=== PATIENT | male | born 1985 | race Caucasian/White ===

== ENCOUNTER 2018-03-08 11:11 | Inpatient (IN) | payer OTHER, MEDICAID, SELFPAY ==
[2018-03-08] VITALS (11 sets, daily range): BP systolic 122–150; BP diastolic 72–111; PULSE 69–144; RESP 16–32; TEMP 38–39.2; O2SAT 94–98; BMI 30.2; BMI 31.2; BMI 31.3
--- NOTE | 2018-03-08 11:26 | RAD_ITS ---
STUDY: X-RAY CHEST REASON FOR EXAM: Male, 33 years old. Vomiting TECHNIQUE: Frontal and lateral views COMPARISON: None. FINDINGS: The lungs are clear and expanded. There is no demonstrated pleural abnormality. Normal size heart. Normal mediastinum and edy. Normal visualized pulmonary arteries. Normal visualized aortic arch and descending thoracic aorta. Vertebral rods are noted of the thoracic spine. Normal visualized ribs, clavicles, and shoulders. There is no demonstrated abnormality of the visualized soft tissue structures of the upper abdomen. RAD/Chest PA and Lateral IMPRESSION: Normal x-ray examination of the chest. Electronically Signed: Harsha De Leon DO at 13:06 EDT Tel [phone], Service support ,
--- NOTE | 2018-03-08 11:28 | ED.VISSUMM ---
- ER Visit Summary Date of Service: 03/08/18 Chief Complaint: Fever, vomiting, cough History of Present Illness: The patient is a [address] Lucas. 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 Family reports that he has a cough that began yesterday. He has been nauseated and vomited 6 times today. No blood in his emesis. He denies any abdominal pain or diarrhea. The reports this is similar to when he has had strep previously. He does complain of a sore throat. Physical Examination: Vitals: 102.3, 150/103, 83, 14, 90% room air she is not hypoxic. General: Well-nourished and well-developed. Head: Normocephalic atraumatic. HEENT: General erythema without exudate. No peritonsillar abscess. Neck: Supple, no lymphadenopathy. No JVD. Nontender. Cardiovascular: Regular rate and rhythm. No murmurs. Respiratory: No respiratory distress. Clear to auscultation bilaterally. Abdominal: Soft, nontender, nondistended, normal bowel sounds. No guarding, rebound, or peritoneal signs. Back: Nontender. Extremities: Nontender, no edema. Skin: Normal color, no rash. Neurologic: Alert. Test Results: CBC is marked for segment neutrophils 84 lymphs at the 7. Chem-7 is more for glucose 122. LFTs normal. Lipase normal. UA is marked for 5-10 red blood cells. Rapid strep was negative. Chest x-ray is normal. CT flank shows normal appendix and no kidney stones. They do describe a groundglass infiltrate in the right lower lobe. Emergency Department Course and Treatment: Patient had an IV placed. He was given Toradol and Zofran IV. He is resting comfortably. With the hematuria his urine was sent for culture and is given dose of Unasyn IV. Patient was able to tolerate p.o. here without difficulty. Treatment Plan: Patient will be discharged on Augmentin and Zofran. Instructed follow-up his primary care physician in 3-5 days for another exam. Return to the emergency department for any worsening symptoms. Disposition: To home in improved and stable condition. Impression: 1. Pneumonia, community-acquired. 2. Hematuria. This note was generated with [employer] software. It may contain incorrect words, spelling, and punctuation that were not noted in review of the chart prior to signing ED Disposition - Plan for ED Patient: Chief Complaint: Nausea/Vomiting Instructions: ED Pneumonia Adult Prescriptions: Ondansetron [Zofran Odt] 4 mg PO Q8H PRN PRN #10 tablet PRN Reason: Nausea Amox/Clav 400mg/5ml Susp [Augmentin Suspension 400mg/5ml] 875 mg PO BIDCM 10 Days ml Referrals: Doctor,Your [STAFF PHYSICIAN] - 3-5 Days
[2018-03-08 11:57] LABS: Bacteria 0 SEEN /hpf (None Seen); Mucous, Urine 0 SEEN /hpf (<or=2+); Squamous Epithelial Cells - UA 0 SEEN /hpf (0-5)
[2018-03-08 11:58] LABS: Color, Urine Yellow (Yellow); Glucose, Dipstick Normal (Normal); Ketone-Dipstick 15 mg/dl (Negative); Leukocyte Esterase-Dipstick 25 /ul (Negative); Nitrite-Dipstick Negative (Negative); Occult Blood-Urine 250 /ul (Negative); Protein-Dipstick 500 mg/dl (Negative); Urine Bilirubin Dipstick Negative (Negative); Urine Clarity Clear (Clear); Urine Urobilinogen Normal (Normal)
[2018-03-08 12:21] LABS: Red Blood Cells-Urine 5-10 SEEN /hpf (0-5); White Blood Cells 0-5 SEEN /hpf (0-5)
--- NOTE | 2018-03-08 12:37 | CT_ITS ---
STUDY: CT ABDOMEN AND PELVIS WITHOUT CONTRAST REASON FOR EXAM: Male, 33 years old. Fever, hematuria RADIATION DOSAGE (If Supplied By Facility): CTDIvol = ( 10.47 ) mGy, DLP = ( 530.99 ) mGycm TECHNIQUE: Transaxial images were obtained from the dome of the diaphragm to the symphysis pubis without oral contrast, and without intravenous contrast. Sagittal and coronal images were reconstructed. Individualized dose optimization techniques were used for this CT. COMPARISON: None. FINDINGS: The right lung base demonstrates groundglass interstitial density The visualized portions of the heart are within normal limits. Normal liver. Normal gallbladder and extrahepatic biliary system. Normal spleen. Normal pancreas. Normal bilateral adrenal glands. Normal right kidney. Normal left kidney. Normal visualized stomach. Normal small intestine. Normal colon. The appendix is visualized and appears normal. Normal abdominal aorta. Normal inferior vena cava. Normal retroperitoneum. Wall thickening of the incompletely distended urinary bladder. Normal abdominal wall. Mild scoliosis with vertebral rods. CT/Abdomen/Pelvis without Cont IMPRESSION: Mild wall thickening of an incompletely distended urinary bladder. No renal stones or hydronephrosis. Groundglass interstitial density in the right lung base. Electronically Signed: Harsha De Leon DO at 13:55 EDT Tel [phone], Service support ,
[2018-03-08] MEDS: 0.9% Normal Saline 1,000 ML 1000 ML IV (12:42)
[2018-03-08] MEDS: Ketorolac 30 MG/ML Syringe IV ×2 (12:42→21:33)
[2018-03-08] MEDS: Ondansetron 4 MG/2 ML Vial IV ×2 (12:42→17:41)
[2018-03-08 12:50] LABS: Absolute Lymphocyte Count 0.63 X10^3/ul (0.83-4.51); Absolute Neutrophil Count 7.5 X10^3/uL (2.0-7.7); Basophil# 0.02 X10^3/uL; Basophil% 0.2 % (0-1); Eosinophil# 0.01 X10^3/uL; Eosinophils% 0.1 % (0-5); Hematocrit 46.2 % (40-54); Hemoglobin 16.1 g/dl (13.0-16.5); Lymphocyte # 0.63 X10^3/ul (4.0); Lymphocyte % 7.1 % (19-41); Mean Corp Hgb Conc 34.8 g/gl (32-36); Mean Corpuscular Hgb 30.1 pg (27.0-32.0); Mean Corpuscular Volume 86.5 fL (80-94); Mean Platelet Vol. 9.1 fl (6.2-12.0); Monocyte# 0.77 X10^3/uL; Monocyte% 8.7 % (0-10); Neutrophil # 7.46 X10^3/uL (2.7-7.7); Neutrophil % 83.8 % (47-70); Platelet Count 203 K/mm3 (150-450); RBC Distribution Width CV 12.6 % (11.6-14.6); RBC Distribution Width SD 40.1 fl (35.1-43.9); Red Blood Count 5.34 M/mm3 (4.6-6.2); White Blood Count 8.9 K/mm3 (4.4-11.0)
[2018-03-08 12:51] LABS: POSITIVE COUNT NO; POSITIVE DIFFERENTIAL NO; POSITIVE MORPHOLOGY NO
[2018-03-08 13:03] LABS: AST(SGOT) 25 U/L (15-37); Alanine Aminotransfer ALT/SGPT 30 U/L (16-61); Alkaline Phosphatase 75 U/L (45-117); Anion Gap 7 (5-15); BUN 12 mg/dL (7-18); BUN/Creat Ratio 11.4 RATIO (10-20); Bilirubin, Direct 0.11 mg/dL (0.00-0.30); Calcium,Total 8.7 mg/dL (8.5-10.1); Chloride 104 mmol/L (98-107); Creatinine, Serum 1.05 mg/dL (0.70-1.30); EST Glomerular Filtration Rate 88 mL/min (>60); Est Glom Filt Rate - Afr Amer 106 mL/min (>60); Estimated Creatinine Clearance 75.41 ml/min; Globulin 3.7 g/dL (2.2-4.2); Glucose 122 mg/dL (74-106); Lipase 73 U/L (73-393); Protein, Total 7.7 g/dL (6.4-8.2); Sodium Level 138 mmol/L (136-145)
[2018-03-08] MEDS: proMETHazine 25 MG/ML Syringe 6.25 MG IV (13:41)
[2018-03-08] MEDS: DiphenhydrAMINE 50 MG/ML Syringe 25 MG IV (14:44)
[2018-03-08] MEDS: levoFLOXacin IV 750 MG/150 ML BAG 100 MG IV (14:46)
--- NOTE | 2018-03-08 17:05 | PCM.HP.STD ---
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 In ER, CXR was unremarkable, however, CT A/P showed ground-glass infiltrate in RLL. Concern was for aspiration pneumonia and patient received unasyn. Pt is aphasic at baseline and very agitated as he is sick (as he is wont to be he is ill). With the active retching, MRDD patient is being admitted for aspiration pneumonia and gastroenteritis. History is obtained through ER physician and family; as pt is unable to provide any history.[] Past Medical History Past Medical History (Chronic Problems): Chronic Problems Deletion of chromosome 13q (Chronic) Scoliosis (Chronic) Mental retardation (Chronic) Asthma (Chronic) Atopic dermatitis (Chronic) Allergies cefaclor [From [facility]] Allergy (Verified 03/08/18 11:12) Rash Home Medications: Ambulatory Orders Medication Instructions Recorded Amox/Clav 400mg/5ml Susp 875 mg PO BIDCM 10 Days ml 03/08/18 [Augmentin Suspension 400mg/5ml] DiphenhydrAMINE [Benadryl] 25 mg PO BID PRN PRN 03/08/18 Ondansetron [Zofran Odt] 4 mg PO Q8H PRN PRN #10 tablet 03/08/18 Surgical History: - - surgical correction of scoliosis Lives: With Family Smoking Status: Never smoker Tobacco Use: Non-smoker Alcohol: None Drugs: None - *Family History Maternal History Items: - - no lung disease Review of Systems Unable to obtain accurate/complete ROS d/t: unable to obtain given MRDD. VTE Information - Inpt Only VTE Present on Admission: No VTE Mechan Device Prophylaxis: None VTE Pharm Prophylaxis ordered?: No Reason prophylaxis not ordered:: Procedure Not Indicated Patient Problems: Active and Suspected Problems Aspiration pneumonia (Acute) Gastroenteritis (Acute) - Physical Exam General: - - anxious. agitated. febrile HEENT: Atraumatic, Normocephalic, - - injected right eye. Neck: - - short neck. Lungs: Clear to auscultation, Diminished, - - poor inspiratory effort. Cardiovascular: Regular rate, Regular Rhythm, Normal S1, Normal S2, No murmurs Abdomen: Bowel Sounds Present, Soft, Non Tender, Non-Distended Extremities: No edema, No Calf Tenderness Skin: - - eczyma on back. Psych/Mental Status: Normal Affect, Appropriate Vital Signs Temp Pulse Resp BP Pulse Ox 39.1 C H 69 16 140/107 H 98 03/08/18 11:12 03/08/18 16:54 03/08/18 16:54 03/08/18 16:54 03/08/18 16:54 Oxygen Delivery Method Room Air Weight: 72.6 kg Body Mass Index (BMI) 30.2 Microbiology Past 72 Hours 03/08/18 11:27 Group A Streptococcus Rapid Screen - Preliminary Mucosa - Throat Laboratory Tests Past 24 Hrs 03/08/18 03/08/18 03/08/18 11:50 12:41 12:41 WBC 8.9 RBC 5.34 Hgb 16.1 Hct 46.2 MCV 86.5 MCH 30.1 MCHC 34.8 RDW 12.6 RDW Differential 40.1 Plt Count 203 MPV 9.1 Immature Gran % (Auto) 0.100 Neut % (Auto) 83.8 H Lymph % (Auto) 7.1 L [place] % (Auto) 8.7 Eos % (Auto) 0.1 Baso % (Auto) 0.2 Absolute Neuts (auto) 7.5 Absolute Lymphs (auto) 0.63 L Total Counted Not Reportable Sodium 138 Potassium 4.0 Chloride 104 Carbon Dioxide 27.0 Anion Gap 7 BUN 12 Creatinine 1.05 Estim Creat Clear Calc 75.41 Est GFR (MDRD) Af Amer 106 Est GFR (MDRD) Non-Af 88 BUN/Creatinine Ratio 11.4 Glucose 122 H Calcium 8.7 Total Bilirubin 0.40 Direct Bilirubin 0.11 AST 25 ALT 30 Alkaline Phosphatase 75 Total Protein 7.7 Albumin 4.0 Globulin 3.7 Lipase 73 Urine Color Yellow Urine Clarity Clear Urine pH 6.0 Ur Specific [place] 1.020 Urine Protein 500 H Urine Glucose (UA) Normal Urine Ketones 15 H Urine Occult Blood 250 H Urine Nitrite Negative Urine Bilirubin Negative Urine Urobilinogen Normal Ur Leukocyte Esterase 25 H Urine RBC 5-10 SEEN Urine WBC 0-5 SEEN Ur Squamous Epith Cells 0 SEEN Urine Bacteria 0 SEEN Urine Mucus 0 SEEN Assessment/Plan Active and Suspected Problems Aspiration pneumonia (Acute) Gastroenteritis (Acute) 1. aspiration pneumonia. probably due to gastroenteritis unasyn pulm toilet 2. gastroenteritis: supportive TMT zofran per family: patient eats very well at baseline IVF 3. chromosome 13 partial deletion complicates care given his limited ability to understand and increased agitation a family member plans on staying with patient while he is hospitalized. 4. DVT proph: not indicated, given low risk. Code Visit Inpatient E&M: 14167 Init Hosp L2
--- NOTE | 2018-03-08 17:16 | HP.PCM_ITS ---
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 In ER, CXR was unremarkable, however, CT A/P showed ground-glass infiltrate in RLL. Concern was for aspiration pneumonia and patient received unasyn. Pt is aphasic at baseline and very agitated as he is sick (as he is wont to be he is ill). With the active retching, MRDD patient is being admitted for aspiration pneumonia and gastroenteritis. History is obtained through ER physician and family; as pt is unable to provide any history.[] Past Medical History Past Medical History (Chronic Problems): Chronic Problems Deletion of chromosome 13q (Chronic) Scoliosis (Chronic) Mental retardation (Chronic) Asthma (Chronic) Atopic dermatitis (Chronic) Allergies cefaclor [From [facility]] Allergy (Verified 03/08/18 11:12) Rash Home Medications: Ambulatory Orders Medication Instructions Recorded Amox/Clav 400mg/5ml Susp 875 mg PO BIDCM 10 Days ml 03/08/18 [Augmentin Suspension 400mg/5ml] DiphenhydrAMINE [Benadryl] 25 mg PO BID PRN PRN 03/08/18 Ondansetron [Zofran Odt] 4 mg PO Q8H PRN PRN #10 tablet 03/08/18 Surgical History: - - surgical correction of scoliosis Lives: With Family Smoking Status: Never smoker Tobacco Use: Non-smoker Alcohol: None Drugs: None - *Family History Maternal History Items: - - no lung disease Review of Systems Unable to obtain accurate/complete ROS d/t: unable to obtain given MRDD. VTE Information - Inpt Only VTE Present on Admission: No VTE Mechan Device Prophylaxis: None VTE Pharm Prophylaxis ordered?: No Reason prophylaxis not ordered:: Procedure Not Indicated Patient Problems: Active and Suspected Problems Aspiration pneumonia (Acute) Gastroenteritis (Acute) - Physical Exam General: - - anxious. agitated. febrile HEENT: Atraumatic, Normocephalic, - - injected right eye. Neck: - - short neck. Lungs: Clear to auscultation, Diminished, - - poor inspiratory effort. Cardiovascular: Regular rate, Regular Rhythm, Normal S1, Normal S2, No murmurs Abdomen: Bowel Sounds Present, Soft, Non Tender, Non-Distended Extremities: No edema, No Calf Tenderness Skin: - - eczyma on back. Psych/Mental Status: Normal Affect, Appropriate Vital Signs Temp Pulse Resp BP Pulse Ox 39.1 C H 69 16 140/107 H 98 03/08/18 11:12 03/08/18 16:54 03/08/18 16:54 03/08/18 16:54 03/08/18 16:54 Oxygen Delivery Method Room Air Weight: 72.6 kg Body Mass Index (BMI) 30.2 Microbiology Past 72 Hours 03/08/18 11:27 Group A Streptococcus Rapid Screen - Preliminary Mucosa - Throat Laboratory Tests Past 24 Hrs 03/08/18 03/08/18 03/08/18 11:50 12:41 12:41 WBC 8.9 RBC 5.34 Hgb 16.1 Hct 46.2 MCV 86.5 MCH 30.1 MCHC 34.8 RDW 12.6 RDW Differential 40.1 Plt Count 203 MPV 9.1 Immature Gran % (Auto) 0.100 Neut % (Auto) 83.8 H Lymph % (Auto) 7.1 L [place] % (Auto) 8.7 Eos % (Auto) 0.1 Baso % (Auto) 0.2 Absolute Neuts (auto) 7.5 Absolute Lymphs (auto) 0.63 L Total Counted Not Reportable Sodium 138 Potassium 4.0 Chloride 104 Carbon Dioxide 27.0 Anion Gap 7 BUN 12 Creatinine 1.05 Estim Creat Clear Calc 75.41 Est GFR (MDRD) Af Amer 106 Est GFR (MDRD) Non-Af 88 BUN/Creatinine Ratio 11.4 Glucose 122 H Calcium 8.7 Total Bilirubin 0.40 Direct Bilirubin 0.11 AST 25 ALT 30 Alkaline Phosphatase 75 Total Protein 7.7 Albumin 4.0 Globulin 3.7 Lipase 73 Urine Color Yellow Urine Clarity Clear Urine pH 6.0 Ur Specific [place] 1.020 Urine Protein 500 H Urine Glucose (UA) Normal Urine Ketones 15 H Urine Occult Blood 250 H Urine Nitrite Negative Urine Bilirubin Negative Urine Urobilinogen Normal Ur Leukocyte Esterase 25 H Urine RBC 5-10 SEEN Urine WBC 0-5 SEEN Ur Squamous Epith Cells 0 SEEN Urine Bacteria 0 SEEN Urine Mucus 0 SEEN Assessment/Plan Active and Suspected Problems Aspiration pneumonia (Acute) Gastroenteritis (Acute) 1. aspiration pneumonia. * probably due to gastroenteritis * unasyn * pulm toilet 2. gastroenteritis: * supportive TMT * zofran * per family: patient eats very well at baseline * IVF 3. chromosome 13 partial deletion * complicates care given his limited ability to understand and increased agitation * a family member plans on staying with patient while he is hospitalized. 4. DVT proph: not indicated, given low risk. Code Visit Inpatient E&M: [id number] Init Hosp L2
[2018-03-08] MEDS: Acetaminophen 650 MG Suppository 500 MG RECTAL ×2 (18:00→22:47)
[2018-03-08 19:25] LABS: Lactic Acid 1.4 mmol/L (0.4-2.0)
[2018-03-08] MEDS: 0.9% Normal Saline 1,000 ML 100 ML IV ×2 (20:00→23:27)
--- NOTE | 2018-03-08 21:16 | NURSING ---
STARTED NS BOLUS AT THIS TIME
--- NOTE | 2018-03-08 21:19 | NURSING ---
LAB REPORTS UNABLE TO GET BLOOD CULTURES DUE TO DIFFICULT STICK, NURSING SUPV NOTIFIED
[2018-03-08] MEDS: 0.9% Normal Saline 1,000 ML 999 ML IV ×2 (21:31→22:49)
--- NOTE | 2018-03-08 22:19 | NURSING ---
OFFERED FAMILY ROOM TO PT'S PARENTS FOR COMFORT THEY WILL BE STAYING WITH HIM. FAMILY IN AGREEMENT. PT MOVED TO 216. REGISTRATION NOTIFIED. PRIMARY RN AWARE
--- NOTE | 2018-03-08 22:30 | NURSING ---
Up to bathroom with patient and patient's mom. Mom found tylenol suppository in patient underwear.
[2018-03-09] VITALS (13 sets, daily range): BP systolic 97–163; BP diastolic 63–96; PULSE 106–130; RESP 16–28; TEMP 36.6–38.3; O2SAT 90–98
[2018-03-09] MEDS: Ketorolac 30 MG/ML Syringe IV ×3 (05:08→21:37)
[2018-03-09] MEDS: 0.9% Normal Saline 1,000 ML 100 ML IV ×2 (06:04→16:18)
[2018-03-09 06:45] LABS: Absolute Lymphocyte Count 1.18 X10^3/ul (0.83-4.51); Absolute Neutrophil Count 6.1 X10^3/uL (2.0-7.7); Basophil# 0.01 X10^3/uL; Basophil% 0.1 % (0-1); Hematocrit 39.1 % (40-54); Hemoglobin 13.7 g/dl (13.0-16.5); Lymphocyte # 1.18 X10^3/ul (4.0); Lymphocyte % 14.5 % (19-41); Mean Corpuscular Hgb 30.4 pg (27.0-32.0); Mean Corpuscular Volume 86.7 fL (80-94); Mean Platelet Vol. 9.5 fl (6.2-12.0); Monocyte# 0.86 X10^3/uL; Monocyte% 10.6 % (0-10); Neutrophil # 6.07 X10^3/uL (2.7-7.7); Neutrophil % 74.6 % (47-70); Platelet Count 189 K/mm3 (150-450); RBC Distribution Width CV 12.5 % (11.6-14.6); RBC Distribution Width SD 38.8 fl (35.1-43.9); Red Blood Count 4.51 M/mm3 (4.6-6.2); White Blood Count 8.1 K/mm3 (4.4-11.0)
--- NOTE | 2018-03-09 06:45 | NURSING ---
Reviewed Latisha Ma RN charting.
[2018-03-09 07:00] LABS: POSITIVE COUNT NO; POSITIVE DIFFERENTIAL NO; POSITIVE MORPHOLOGY NO
[2018-03-09 07:11] LABS: Anion Gap 9 (5-15); BUN 14 mg/dL (7-18); BUN/Creat Ratio 16.5 RATIO (10-20); Calcium,Total 7.4 mg/dL (8.5-10.1); Chloride 111 mmol/L (98-107); Creatinine, Serum 0.85 mg/dL (0.70-1.30); EST Glomerular Filtration Rate 112 mL/min (>60); Est Glom Filt Rate - Afr Amer 135 mL/min (>60); Estimated Creatinine Clearance 89.05 ml/min; Glucose 97 mg/dL (74-106); Potassium 3.7 mmol/L (3.5-5.1); Sodium Level 142 mmol/L (136-145)
[2018-03-09] MEDS: Oseltamivir Phosphate 75 MG Capsule PO ×2 (10:09→21:32)
--- NOTE | 2018-03-09 10:17 | PCM.PN.HOSP ---
Patient Problems: Active and Suspected Problems Aspiration pneumonia (Acute) Gastroenteritis (Acute) Subjective: Sonali, patient doing better. Patient much more interactive. Discussed with speech therapy, stated the patient did well with regular diet but was concerned patient may have actually eaten too much. No further nausea or vomiting. Vitals/I&O's: Vital Signs Temp Pulse Resp BP Pulse Ox 36.9 C 130 H 16 97/63 97 03/09/18 09:49 03/09/18 09:49 03/09/18 09:53 03/09/18 09:49 03/09/18 09:49 Oxygen Flow Rate (L/min) 2 Oxygen Delivery Method Nasal Cannula Weight: 72.6 kg Body Mass Index (BMI) 31.2 Intake and Output for Last 24 Hours 03/07/18 03/08/18 03/09/18 23:59 23:59 23:59 Intake Total 3020 / 3020 Balance 3020 / 3020 General: - - Awake. Nonverbal. Follows some simple commands. HEENT: Atraumatic, Normocephalic, - - Injected cornea of the right eye. Oral: Moist Mucosa, No Gingival or Mucosal Lesions/ Ulcerations Neck: No Nodes, Thyroid Normal Size and Texture Lungs: Clear to auscultation, Normal air movement, No rhonchi, No wheeze Cardiovascular: Regular rate, Regular Rhythm, Normal S1, Normal S2, No murmurs Abdomen: Bowel Sounds Present, Soft, Non Tender, Non-Distended, No Hepato-splenomegaly Extremities: No edema, No Calf Tenderness Skin: No rashes, No breakdown Psych/Mental Status: Normal Affect, Appropriate Microbiology Past 72 Hours 03/08/18 22:57 Mucosa - Nose Influenza Types A,B Direct FA (REBECA) - Final Influenzae A Laboratory Results 03/08/18 18:55: Lactic Acid 1.4 03/09/18 06:15: WBC 8.1, RBC 4.51 L, Hgb 13.7, Hct 39.1 L, MCV 86.7, MCH 30.4, MCHC 35.0, RDW 12.5, RDW Differential 38.8, Plt Count 189, MPV 9.5, Immature Gran % (Auto) 0.200, Neut % (Auto) 74.6 H, Lymph % (Auto) 14.5 L, [place] % (Auto) 10.6 H, Eos % (Auto) 0.0, Baso % (Auto) 0.1, Absolute Neuts (auto) 6.1, Absolute Lymphs (auto) 1.18, Total Counted Not Reportable 03/09/18 06:15: Sodium 142, Potassium 3.7, Chloride 111 H, Carbon Dioxide 22.0, Anion Gap 9, BUN 14, Creatinine 0.85, Estim Creat Clear Calc 89.05, Est GFR (MDRD) Af Amer 135, Est GFR (MDRD) Non-Af 112, BUN/Creatinine Ratio 16.5, Glucose 97, Calcium 7.4 L Current Medications Acetaminophen (Tylenol) 500 mg RECTAL Q4H PRN PRN PRN Reason: FEVER Last Admin: 03/08/18 22:47 Dose: 500 mg Diphenhydramine HCl (Benadryl) 25 mg PO BID PRN PRN PRN Reason: ALLERGIES Sodium Chloride () 1,000 mls @ 100 mls/hr IV .Q10H [facility] Last Admin: 03/09/18 06:04 Dose: 100 mls/hr Ampicillin Sodium/Sulbactam (Sodium 3 gm/ Sodium Chloride) 112 mls @ 150 mls/hr IV Q6 [facility] Last Admin: 03/09/18 05:07 Dose: 150 mls/hr Ketorolac Tromethamine (Toradol) 30 mg IV Q6H PRN PRN PRN Reason: FEVER/PAIN Stop: 03/13/18 15:14 Last Admin: 03/09/18 05:08 Dose: 30 mg Magnesium Hydroxide (Milk Of Magnesia) 30 ml PO DAILY PRN PRN PRN Reason: Constipation Ondansetron HCl (Zofran) 4 mg IV Q4H PRN PRN PRN Reason: NAUSEA Oseltamivir Phosphate (Tamiflu) 75 mg PO BID [facility] Stop: 03/13/18 10:01 Last Admin: 03/09/18 10:09 Dose: 75 mg Sodium Chloride () 5 - 30 ml IV UD PRN PRN Reason: SALINE FLUSH Medical Necessity - Tobacco Use Smoking Status: Never smoker Tobacco Use: Non-smoker Assessment/Plan Active and Suspected Problems Aspiration pneumonia (Acute) Gastroenteritis (Acute) 1. Influenza A Likely the cause of the patient's gastroenteritis. Clinically improved On Tamiflu 2. aspiration pneumonia. probably due to gastroenteritis unasyn pulm toilet 3. chromosome 13 partial deletion complicates care given his limited ability to understand and increased agitation a family member plans on staying with patient while he is hospitalized. 4. DVT proph: not indicated, given low risk. Will reassess patient later today and determine if any additional work up or hospitalization necessary. DW patient's family at bedside. Code Visit Inpatient E&M: [id number] Subs Hosp L2
--- NOTE | 2018-03-09 10:20 | PN_ITS ---
Patient Problems: Active and Suspected Problems Aspiration pneumonia (Acute) Gastroenteritis (Acute) Subjective: Sonali, patient doing better. Patient much more interactive. Discussed with speech therapy, stated the patient did well with regular diet but was concerned patient may have actually eaten too much. No further nausea or vomiting. Vitals/I&O's: Vital Signs Temp Pulse Resp BP Pulse Ox 36.9 C 130 H 16 97/63 97 03/09/18 09:49 03/09/18 09:49 03/09/18 09:53 03/09/18 09:49 03/09/18 09:49 Oxygen Flow Rate (L/min) 2 Oxygen Delivery Method Nasal Cannula Weight: 72.6 kg Body Mass Index (BMI) 31.2 Intake and Output for Last 24 Hours 03/07/18 03/08/18 03/09/18 23:59 23:59 23:59 Intake Total 3020 / 3020 Balance 3020 / 3020 General: - - Awake. Nonverbal. Follows some simple commands. HEENT: Atraumatic, Normocephalic, - - Injected cornea of the right eye. Oral: Moist Mucosa, No Gingival or Mucosal Lesions/ Ulcerations Neck: No Nodes, Thyroid Normal Size and Texture Lungs: Clear to auscultation, Normal air movement, No rhonchi, No wheeze Cardiovascular: Regular rate, Regular Rhythm, Normal S1, Normal S2, No murmurs Abdomen: Bowel Sounds Present, Soft, Non Tender, Non-Distended, No Hepato- splenomegaly Extremities: No edema, No Calf Tenderness Skin: No rashes, No breakdown Psych/Mental Status: Normal Affect, Appropriate Microbiology Past 72 Hours 03/08/18 22:57 Mucosa - Nose Influenza Types A,B Direct FA (REBECA) - Final Influenzae A Laboratory Results 03/08/18 18:55: Lactic Acid 1.4 03/09/18 06:15: WBC 8.1, RBC 4.51 L, Hgb 13.7, Hct 39.1 L, MCV 86.7, MCH 30.4, MCHC 35.0, RDW 12.5, RDW Differential 38.8, Plt Count 189, MPV 9.5, Immature Gran % (Auto) 0.200, Neut % (Auto) 74.6 H, Lymph % (Auto) 14.5 L, [place] % (Auto) 10.6 H, Eos % (Auto) 0.0, Baso % (Auto) 0.1, Absolute Neuts (auto) 6.1, Absolute Lymphs (auto) 1.18, Total Counted Not Reportable 03/09/18 06:15: Sodium 142, Potassium 3.7, Chloride 111 H, Carbon Dioxide 22.0, Anion Gap 9, BUN 14, Creatinine 0.85, Estim Creat Clear Calc 89.05, Est GFR ( MDRD) Af Amer 135, Est GFR (MDRD) Non-Af 112, BUN/Creatinine Ratio 16.5, Glucose 97, Calcium 7.4 L Current Medications Acetaminophen (Tylenol) 500 mg RECTAL Q4H PRN PRN PRN Reason: FEVER Last Admin: 03/08/18 22:47 Dose: 500 mg Diphenhydramine HCl (Benadryl) 25 mg PO BID PRN PRN PRN Reason: ALLERGIES Sodium Chloride () 1,000 mls @ 100 mls/hr IV .Q10H [facility] Last Admin: 03/09/18 06:04 Dose: 100 mls/hr Ampicillin Sodium/Sulbactam (Sodium 3 gm/ Sodium Chloride) 112 mls @ 150 mls/ hr IV Q6 [facility] Last Admin: 03/09/18 05:07 Dose: 150 mls/hr Ketorolac Tromethamine (Toradol) 30 mg IV Q6H PRN PRN PRN Reason: FEVER/PAIN Stop: 03/13/18 15:14 Last Admin: 03/09/18 05:08 Dose: 30 mg Magnesium Hydroxide (Milk Of Magnesia) 30 ml PO DAILY PRN PRN PRN Reason: Constipation Ondansetron HCl (Zofran) 4 mg IV Q4H PRN PRN PRN Reason: NAUSEA Oseltamivir Phosphate (Tamiflu) 75 mg PO BID [facility] Stop: 03/13/18 10:01 Last Admin: 03/09/18 10:09 Dose: 75 mg Sodium Chloride () 5 - 30 ml IV UD PRN PRN Reason: SALINE FLUSH Medical Necessity - Tobacco Use Smoking Status: Never smoker Tobacco Use: Non-smoker Assessment/Plan Active and Suspected Problems Aspiration pneumonia (Acute) Gastroenteritis (Acute) 1. Influenza A * Likely the cause of the patient's gastroenteritis. * Clinically improved * On Tamiflu 2. aspiration pneumonia. * probably due to gastroenteritis * unasyn * pulm toilet 3. chromosome 13 partial deletion * complicates care given his limited ability to understand and increased agitation * a family member plans on staying with patient while he is hospitalized. 4. DVT proph: not indicated, given low risk. Will reassess patient later today and determine if any additional work up or hospitalization necessary. DW patient's family at bedside. Code Visit Inpatient E&M: [id number] Subs Hosp L2
[2018-03-09] MEDS: Ondansetron 4 MG/2 ML Vial IV (13:08)
[2018-03-09] MEDS: 0.9% NaCl Peripheral Flush Adult/Peds IV ×2 (13:08→14:42)
--- NOTE | 2018-03-09 14:32 | NURSING ---
pt having multiple episodes of emesis. ZOFRAN HAD BEEN GIVEN W/O MUCH RESULT.
--- NOTE | 2018-03-09 22:20 | NURSING ---
Nurse wrapped both IV (saline lock) sites with plastic wrap and taped, so patient could take shower with mom's assistance. Pt tolerated well. Nurse removed plastic wrap, and rehooked patient to IV fluids. Pt now back in bed. Both parents are spending the night in the room again.
[2018-03-09] MEDS: Acetaminophen 500 MG Tablet PO (22:56)
[2018-03-10] VITALS (15 sets, daily range): BP systolic 125–160; BP diastolic 74–100; PULSE 103–129; RESP 22–32; TEMP 37.2–38.4; O2SAT 74–98
[2018-03-10] MEDS: Furosemide 40 MG/4 ML Vial IV (01:25)
[2018-03-10] MEDS: Ipratropium/Albuterol Sulfate 3 ML AMPUL.NEB INHALATION (01:30)
--- NOTE | 2018-03-10 01:55 | NURSING ---
Pt had recd 40mg of lasix, assisted to bathroom. Voided 650cc, and patient had a couple good coughs. Sats 87% on roomair. Placed on 02 5l, sats 91%. Scattered rhonchi posteriorly. Both present in room and were awake and assisted nurse with ambulation.
[2018-03-10] MEDS: Ondansetron 4 MG/2 ML Vial IV (02:51)
--- NOTE | 2018-03-10 03:15 | NUR.TO.PHY ---
Patient's father came out to nurses' station to report that patient is biting his lower lip and making it bleed. Father asking for a bit stick, nurse suggested a wet washcloth. Pt vomited 50cc while nurse in room. Zofran was given by HYUN Good. Pt sitting up in chair, sats much better since patient has vomited and coughed. Sats 96% on 5l.
[2018-03-10] MEDS: Ketorolac 30 MG/ML Syringe IV (03:52)
--- NOTE | 2018-03-10 04:27 | NURSING ---
Nurse returned to give toradol, pt awake sitting up in chair, mom hovering over patient. He has not vomited since staff was in room 1 hour ago. Gave toradol, and transferred patient to recliner. Vital signs obtained. Patient continues to bite lower lip. Mom thought the lip biting was d/t stress which nurse agreed. Nurse encouraged parents and patient to rest. Parents went back to couch, and patient is going to sleep in recliner. Pt continues to hold onto emesis bag.
[2018-03-10] MEDS: 0.9% NaCl Peripheral Flush Adult/Peds IV (05:55)
--- NOTE | 2018-03-10 07:29 | NURSING ---
Agreed with HYUN Goodcomp field case manager.
[2018-03-10] MEDS: Acetaminophen 500 MG Tablet PO (08:12)
--- NOTE | 2018-03-10 09:22 | PN_ITS ---
Subjective: Patient seen and examined. Mother complains of patient chewing his legs last night with episodes of bleeding related to anxiety. Patient is on continuous pulse soles and saturation 97% on 5 L of oxygen. Other acute events were noted. He was evaluated for home oxygen and did not qualify because he saturated 93% on room air on ambulation. Objective: Physical exam: General: Awake, Nonverbal, Follows some simple commands. HEENT: Atraumatic, Normocephalic, right eye is closed. Oral: Moist Mucosa Neck: No Nodes, Thyroid Normal Size and Texture Lungs: Clear to auscultation, Normal air movement, No rhonchi, No wheeze Cardiovascular: Regular rate, Regular Rhythm, Normal S1, Normal S2, No murmurs Abdomen: Bowel Sounds Present, Soft, Non Tender, Non-Distended, No Hepato- splenomegaly Extremities: No edema, No Calf Tenderness Skin: No rashes, No breakdown Psych/Mental Status: Normal Affect, Appropriate Vitals/I&O's: Vital Signs Temp Pulse Resp BP Pulse Ox 99.0 F 105 H 28 H 135/86 H 98 03/10/18 08:00 03/10/18 08:00 03/10/18 08:00 03/10/18 08:00 03/10/18 08:00 Oxygen Flow Rate (L/min) 5 Oxygen Delivery Method Nasal Cannula Weight: 72.6 kg Body Mass Index (BMI) 31.2 Intake and Output for Last 24 Hours 03/08/18 03/09/18 03/10/18 23:59 23:59 23:59 Intake Total 3020 / 3020 2613 / 2613 Output Total 1750 / 1750 Balance 3020 / 3020 863 / 863 Microbiology Past 72 Hours 03/08/18 22:57 Mucosa - Nose Respiratory Panel (PCR) - Final Influenza A (Subtype H1) 03/08/18 22:57 Mucosa - Nose Influenza Types A,B Direct FA (REBECA) - Final Influenzae A Current Medications Acetaminophen (Tylenol) 500 mg PO Q4H PRN PRN PRN Reason: FEVER Last Admin: 03/10/18 08:12 Dose: 500 mg Albuterol/Ipratropium (Duoneb) 3 ml INHALATION Q4H.RT PRN PRN Reason: SOB &/OR WHEEZING Last Admin: 03/10/18 01:30 Dose: 3 ml Diphenhydramine HCl (Benadryl) 25 mg PO BID PRN PRN PRN Reason: ALLERGIES Ampicillin Sodium/Sulbactam (Sodium 3 gm/ Sodium Chloride) 112 mls @ 150 mls/ hr IV Q6 SILVIA Last Admin: 03/10/18 05:55 Dose: 150 mls/hr Ketorolac Tromethamine (Toradol) 30 mg IV Q6H PRN PRN PRN Reason: FEVER/PAIN Stop: 03/13/18 15:14 Last Admin: 03/10/18 03:52 Dose: 30 mg Magnesium Hydroxide (Milk Of Magnesia) 30 ml PO DAILY PRN PRN PRN Reason: Constipation Ondansetron HCl (Zofran) 4 mg IV Q4H PRN PRN PRN Reason: NAUSEA Last Admin: 03/10/18 02:51 Dose: 4 mg Oseltamivir Phosphate (Tamiflu) 75 mg PO BID SILVIA Stop: 03/13/18 10:01 Last Admin: 03/09/18 21:32 Dose: 75 mg Sodium Chloride () 5 - 30 ml IV UD PRN PRN Reason: SALINE FLUSH Last Admin: 03/10/18 05:55 Dose: 10 ml Medical Necessity - Tobacco Use Smoking Status: Never smoker Tobacco Use: Non-smoker Assessment/Plan 33-year-old male with past medical history of was on 13q deletion syndrome who was admitted with fever cough nausea and vomiting and managed as aspiration pneumonia, influenza A. 1. Acute hypoxic respiratory insufficiency secondary to aspiration pneumonia and influenza A, patient is improved, did not qualify for home oxygen 2. Aspiration pneumonia, will be discharged home on Augmentin 3. Acute Influenza A, will be discharged home on Tamiflu 4. DVT Prophylaxis with early ambulation
--- NOTE | 2018-03-10 09:48 | NURSING ---
O2 sat. 97% on 5 l/min via NC. Oxygen decreased to 3 l/min.
--- NOTE | 2018-03-10 10:05 | CASEMGMT ---
Addendum entered by Angel Poon 03/10/18 10:55: Pt did not qualify for Home oxygen. Nurse Clara notified Dr. Carrillo. Jimmy Jay RN ACM Original Note: Referral made for home oxygen. [facility] and family does not have preference. Will await oxygen testing. Jimmy JAY RN ACM
[2018-03-10] MEDS: Oseltamivir Phosphate 75 MG Capsule PO (10:07)
--- NOTE | 2018-03-10 10:23 | PCM.DC ---
- Discharge Diagnoses Current Active Problems: Current Active and Chronic Problems Aspiration pneumonia (Acute) Gastroenteritis (Acute) Deletion of chromosome 13q (Chronic) Scoliosis (Chronic) Mental retardation (Chronic) Asthma (Chronic) Atopic dermatitis (Chronic) Reason(s) for Visit for Discharge Instructions: Fever, vomiting, cough You will use the following diet at home:: Regular Your food should be the consistency of: Regular Your liquids should be the consistency of: Regular/Thin Discharge Activity: Return to Normal Activity Instructions: ED Pneumonia Adult Additional Instructions: Continue to use your oxygen continuously until told otherwise by your primary care doctor. Be careful being around open flameswhilst on oxygen. You need to follow-up with your PCP within a week to reassess your need for oxygen Please complete all your medications. Allergies/Adverse Reactions: Allergies cefaclor [From Ceclor] Allergy (Verified 03/08/18 11:12) Rash Medications to take at Discharge Amox/Clav 400mg/5ml Susp [Augmentin Suspension 400mg/5ml] 875 mg PO BIDCM 10 Days ml 03/08/18 Cetirizine HCl [Zyrtec] 10 mg PO DAILY 03/08/18 DiphenhydrAMINE [Benadryl] 25 mg PO BID PRN PRN 03/08/18 Fluticasone 0.05% [Flonase Nasal [place]] 2 spray NASAL DAILY 03/08/18 Ondansetron [Zofran Odt] 4 mg PO Q8H PRN PRN #10 tablet 03/08/18 Oseltamivir Phosphate [Tamiflu] 75 mg PO BID #7 cap 03/10/18 The following prescriptions were given: Ondansetron [Zofran Odt] 4 mg PO Q8H PRN PRN #10 tablet PRN Reason: Nausea Amox/Clav 400mg/5ml Susp [Augmentin Suspension 400mg/5ml] 875 mg PO BIDCM 10 Days ml Oseltamivir Phosphate [Tamiflu] 75 mg PO BID #7 cap Orders to be completed after discharge: Basic Metabolic Profile (BMP) Location: Laboratory Primary Care Physician: Doctor,Your [STAFF PHYSICIAN] - 3-5 Days Please follow up with your Primary Care Physician in: within 1 week Proposed Discharge Date: 03/10/18
--- NOTE | 2018-03-10 10:44 | CASEMGMT ---
Per physician, pt will need home oxygen on dc today. Home oxygen testing to be completed by nursing. Script signed by physician. HYUN CM called to [facility]. they will submit to insurance but may not qualify with diagnosis. Dr. Carrillo notified. Script faxed to [facility]. Jimmy CALDERON RN ACM
--- NOTE | 2018-03-10 10:54 | PCM.DC.SUM ---
Discharge Date and Diagnosis Date of Admission: 03/08/18 Date of Discharge: 03/10/18 - Primary Discharge Diagnosis Active and Suspected Problems Aspiration pneumonia (Acute) Gastroenteritis (Acute) - Secondary Discharge Diagnosis Chronic Problems Deletion of chromosome 13q (Chronic) Scoliosis (Chronic) Mental retardation (Chronic) Asthma (Chronic) Atopic dermatitis (Chronic) Hospital Course and Treatment Imaging Results: Clinical Impression(s) from Imaging Studies Chest X-Ray 03/08/18 11:26 IMPRESSION: Normal x-ray examination of the chest. Electronically Signed: Harsha De Leon DO at 13:06 EDT Tel [phone], Service support , Abdomen/Pelvis CT 03/08/18 12:37 IMPRESSION: Mild wall thickening of an incompletely distended urinary bladder. No renal stones or hydronephrosis. Groundglass interstitial density in the right lung base. Electronically Signed: Harsha De Leon DO at 13:55 EDT Tel [phone], Service support , None Operations: None Procedures: None Summary of Care Provided: 33-year-old male with past medical history of chromosome 13q deletion syndrome who was admitted with nausea, vomiting, cough and fever Patient has said to be unwell and had vomited several times, and his mother doses of patient aspirating. Chest x-ray was unremarkable on admission by CT abdomen and pelvis showed groundglass infiltrate in the right lower lung zones, patient was admitted for aspiration pneumonia and found also to have influenza A. 1. Acute hypoxic respiratory insufficiency secondary to aspiration pneumonia and influenza A, managed on oxygen throughout her hospital stay, weaned off oxygen on discharge, did not qualify for home oxygen. 2. Aspiration pneumonia, discharged home on Augmentin 3. Acute Influenza A, discharged home on Tamiflu 4. Chromosome 13 q. deletion syndrome Discharge Diet: No Restrictions Discharge Activity: Return to Normal Activity Home Medications: Medications to take at Discharge Amox/Clav 400mg/5ml Susp [Augmentin Suspension 400mg/5ml] 875 mg PO BIDCM 10 Days ml 03/08/18 Cetirizine HCl [Zyrtec] 10 mg PO DAILY 03/08/18 DiphenhydrAMINE [Benadryl] 25 mg PO BID PRN PRN 03/08/18 Fluticasone 0.05% [Flonase Nasal [place]] 2 spray NASAL DAILY 03/08/18 Ondansetron [Zofran Odt] 4 mg PO Q8H PRN PRN #10 tablet 03/08/18 Oseltamivir Phosphate [Tamiflu] 75 mg PO BID #7 cap 03/10/18 Following Prescrptions Were Given to Patient: Ondansetron [Zofran Odt] 4 mg PO Q8H PRN PRN #10 tablet PRN Reason: Nausea Amox/Clav 400mg/5ml Susp [Augmentin Suspension 400mg/5ml] 875 mg PO BIDCM 10 Days ml Oseltamivir Phosphate [Tamiflu] 75 mg PO BID #7 cap Other Amb Orders: Basic Metabolic Profile (BMP) Location: Laboratory Primary Care Physician: Doctor,Your [STAFF PHYSICIAN] - 3-5 Days Please follow up with your Primary Care Physician in: within 1 week Patient Instructions: ED Pneumonia Adult Disposition: Home Minutes spent on discharge:: 25 Patient Condition:: Stable Medical Necessity - Tobacco Use Smoking Status: Never smoker Tobacco Use: Non-smoker Meaningful Use Info Meaningful Use Diagnoses (Choose all that apply): None applicable Code Visit Inpatient E&M: 45727 Disch Hosp
== END 2018-03-10 11:40 | disposition home or self-care (01) | DRG 178 ==
LOC: ED 12:53 → MS2 17:17
PROVIDERS: Emergency Provider Emergency Medicine; Visit Provider Internal Medicine
DX: J69.0 Pneumonitis due to inhalation of food and vomit (principal); Q93.89 Other deletions from the autosomes; R06.89 Other abnormalities of breathing; J09.X3 Influenza due to identified novel influenza A virus with gastrointestinal manifestations; M41.9 Scoliosis, unspecified; F79 Unspecified intellectual disabilities
CPT/HCPCS: 71046; 74176; 80048; 80076; 81001; 83605; 83690; 85025; 87040; 87086; 87449; 87633; 87804; 87880; 92610; 94640; 94667; 94668; 97802; 99282; J7030; A4216; J0295; J1940; J2405

== ENCOUNTER → 2018-03-17 16:25 | Outpatient (CLI) | payer OTHER, MEDICAID, SELFPAY ==
[2018-03-17 17:41] LABS: Color, Urine Yellow (Yellow); Glucose, Dipstick Normal (Normal); Ketone-Dipstick Negative (Negative); Leukocyte Esterase-Dipstick Negative /ul (Negative); Nitrite-Dipstick Negative (Negative); Occult Blood-Urine 25 /ul (Negative); Protein-Dipstick 100 mg/dl (Negative); Specific Gravity, Urine 1.015 (1.002-1.030); Urine Bilirubin Dipstick Negative (Negative); Urine Clarity Sl. Cloudy (Clear); Urine Urobilinogen Normal (Normal)
[2018-03-17 18:18] LABS: Anion Gap 6 (5-15); BUN 12 mg/dL (7-18); BUN/Creat Ratio 13.1 RATIO (10-20); Calcium,Total 10.2 mg/dL (8.5-10.1); Chloride 102 mmol/L (98-107); Creatinine, Serum 0.91 mg/dL (0.70-1.30); EST Glomerular Filtration Rate 103 mL/min (>60); Est Glom Filt Rate - Afr Amer 124 mL/min (>60); Glucose 72 mg/dL (74-106); Potassium 4.5 mmol/L (3.5-5.1); Sodium Level 138 mmol/L (136-145)
[2018-03-17 18:23] LABS: Absolute Lymphocyte Count 3.33 X10^3/ul (0.83-4.51); Absolute Neutrophil Count 3.3 X10^3/uL (2.0-7.7); Basophil# 0.07 X10^3/uL; Basophil% 0.8 % (0-1); Eosinophil# 0.57 X10^3/uL; Eosinophils% 6.5 % (0-5); Hematocrit 44.8 % (40-54); Hemoglobin 15.4 g/dl (13.0-16.5); Lymphocyte # 3.33 X10^3/ul (4.0); Lymphocyte % 38.1 % (19-41); Mean Corp Hgb Conc 34.4 g/gl (32-36); Mean Corpuscular Hgb 30.1 pg (27.0-32.0); Mean Corpuscular Volume 87.5 fL (80-94); Mean Platelet Vol. 9.3 fl (6.2-12.0); Monocyte# 1.25 X10^3/uL; Monocyte% 14.3 % (0-10); Neutrophil # 3.29 X10^3/uL (2.7-7.7); Neutrophil % 37.6 % (47-70); POSITIVE COUNT YES; POSITIVE DIFFERENTIAL NO; POSITIVE MORPHOLOGY YES; Platelet Count 463 K/mm3 (150-450); RBC Distribution Width CV 12.6 % (11.6-14.6); RBC Distribution Width SD 39.7 fl (35.1-43.9); Red Blood Count 5.12 M/mm3 (4.6-6.2); White Blood Count 8.8 K/mm3 (4.4-11.0)
[2018-03-17 18:24] LABS: Differential Indicated SCAN CRITERIA MET
[2018-03-18 14:28] LABS: Pathologist Review Reviewed
== END ==
PROVIDERS: Visit Provider Internal Medicine
DX: J69.0 Pneumonitis due to inhalation of food and vomit (principal); R11.2 Nausea with vomiting, unspecified; R31.29 Other microscopic hematuria
CPT/HCPCS: 80048; 81002; 85025

== ENCOUNTER → 2018-04-07 16:24 | Outpatient (CLI) | payer OTHER, MEDICAID, SELFPAY ==
[2018-04-07 16:38] LABS: Bacteria 0 SEEN /hpf (None Seen); Mucous, Urine 0 SEEN /hpf (<or=2+); Red Blood Cells-Urine 0 SEEN /hpf (0-5); Squamous Epithelial Cells - UA 0 SEEN /hpf (0-5); White Blood Cells 0 SEEN /hpf (0-5)
[2018-04-07 17:07] LABS: Color, Urine Yellow (Yellow); Glucose, Dipstick Normal (Normal); Ketone-Dipstick Negative (Negative); Leukocyte Esterase-Dipstick Negative /ul (Negative); Nitrite-Dipstick Negative (Negative); Occult Blood-Urine 25 /ul (Negative); Protein-Dipstick Negative (Negative); Specific Gravity, Urine 1.005 (1.002-1.030); Urine Bilirubin Dipstick Negative (Negative); Urine Clarity Clear (Clear); Urine Urobilinogen Normal (Normal)
== END ==
DX: R31.29 Other microscopic hematuria (principal)
CPT/HCPCS: 81001

== ENCOUNTER → 2019-07-01 | Outpatient (CLI) | payer OTHER, MEDICAID, SELFPAY ==
[2019-07-02 15:23] LABS: M R Staph aureus DNA By PCR Negative (Negative); Probe Check PASS; Staph aureus DNA By PCR POSITIVE (Negative)
== END | disposition home or self-care (01) ==
PROVIDERS: Referring Provider Podiatrist; Visit Provider Podiatrist
DX: L03.116 Cellulitis of left lower limb (principal)
CPT/HCPCS: 87070; 87075; 87077; 87186; 87205; 87640

== ENCOUNTER → 2020-02-06 | Outpatient (CLI) | payer OTHER, MEDICAID, SELFPAY ==
[2018-03-08 17:49] VITALS: BMI 31.2
[2020-02-06 12:55] LABS: Creatinine, Serum 0.92 mg/dL (0.70-1.30); EST Glomerular Filtration Rate 100 mL/min (>60); Est Glom Filt Rate - Afr Amer 121 mL/min (>60)
[2020-02-06 13:17] LABS: 24 Hour Urine Protein 1718.6 mg/24HR (<150 MG/24HR); 24HR. UA Prot. Total Volume 1850 mL; 24HR. Urine Creatinine 1.31 g/24 HR (0.90-2.10); Urine Protein (24 Hour) 92.9 mg/dL (<11.9)
[2020-02-06 13:20] LABS: Creat.Clear Total Volume 1850 mL; Creatinine Clearance 96 ml/min (100-200); Creatinine Serum Creat 0.9 mg/dL (0.8-1.3); Creatinine Urine 69.2 mg/dL (NO RANGE EST.); EST Glomerular Filtration Rate 100 mL/min (>60); Est Glom Filt Rate - Afr Amer 121 mL/min (>60)
== END | disposition home or self-care (01) ==
LOC: LABSPEC 12:01
PROVIDERS: PCP Family Medicine; Referring Provider Family Medicine; Visit Provider Family Medicine
DX: R80.9 Proteinuria, unspecified (principal)
CPT/HCPCS: 36415; 82565; 82570; 82575; 84156

== ENCOUNTER → 2020-07-18 | Outpatient (CLI) | payer OTHER, MEDICAID, SELFPAY ==
[2018-03-08 17:49] VITALS: BMI 31.2
[2020-07-18 16:56] LABS: Bacteria 0 SEEN /hpf (None Seen); Mucous, Urine 0 SEEN /hpf (<or=2+); Squamous Epithelial Cells - UA 0 SEEN /hpf (0-5); White Blood Cells 0 SEEN /hpf (0-5)
[2020-07-18 17:51] LABS: Microalbumin:Creatinine Ratio 200.6 mg/g CRE (<30 mg/g CRE); Protein:Creat Ratio 365 mg/g CRE (0-200)
[2020-07-18 18:09] LABS: Albumin, Serum 3.8 g/dL (3.2-5.0); BUN 15 mg/dL (7-18); BUN/Creat Ratio 16.9 RATIO (10-20); Calcium,Total 9.4 mg/dL (8.5-10.1); Chloride 106 mmol/L (98-107); Creatinine, Serum 0.89 mg/dL (0.70-1.30); EST Glomerular Filtration Rate 105 mL/min (>60); Est Glom Filt Rate - Afr Amer 127 mL/min (>60); Glucose 89 mg/dL (74-106); Phosphorus 2.8 mg/dL (2.5-4.9); Potassium 4.4 mmol/L (3.5-5.1); Sodium Level 138 mmol/L (136-145)
[2020-07-18 18:43] LABS: Color, Urine Yellow (Yellow); Glucose, Dipstick Normal (Normal); Ketone-Dipstick Negative (Negative); Leukocyte Esterase-Dipstick Negative /ul (Negative); Nitrite-Dipstick Negative (Negative); Occult Blood-Urine 25 /ul (Negative); Protein-Dipstick 30 mg/dl (Negative); Urine Bilirubin Dipstick Negative (Negative); Urine Clarity Clear (Clear); Urine Urobilinogen Normal (Normal)
[2020-07-18 19:58] LABS: Red Blood Cells-Urine 0-5 SEEN /hpf (0-5)
[2020-07-20 16:08] LABS: Cytoplasmic Ab (C-ANCA) <1:20 titer (Neg:<1:20)
[2020-07-20 17:25] LABS: Perinuclear Ab (P-ANCA) <1:20 titer (Neg:<1:20)
== END | disposition home or self-care (01) ==
LOC: LAB 16:49
PROVIDERS: PCP Family Medicine
DX: R80.9 Proteinuria, unspecified (principal)
CPT/HCPCS: 36415; 80069; 81001; 82043; 82570; 84156; 86038; 86256

== ENCOUNTER → 2021-01-16 | Outpatient (CLI) | payer OTHER, MEDICAID, SELFPAY | END | disposition home or self-care (01) | PROVIDERS: PCP Family Medicine; Referring Provider Podiatrist; Visit Provider Podiatrist | DX: L03.116 Cellulitis of left lower limb (principal) | CPT/HCPCS: 87070; 87075; 87077; 87186; 87205 ==

== ENCOUNTER → 2021-01-21 09:23 | Outpatient (CLI) | payer OTHER, MEDICAID, SELFPAY ==
[2018-03-08 17:49] VITALS: BMI 31.2
[2021-01-21 09:39] LABS: Bacteria 0 SEEN /hpf (None Seen); Mucous, Urine 0 SEEN /hpf (<or=2+); Squamous Epithelial Cells - UA 0 SEEN /hpf (0-5); White Blood Cells 0 SEEN /hpf (0-5)
[2021-01-21 10:00] LABS: Color, Urine Yellow (Yellow); Glucose, Dipstick Normal (Normal); Ketone-Dipstick Negative (Negative); Leukocyte Esterase-Dipstick 25 /ul (Negative); Nitrite-Dipstick Negative (Negative); Occult Blood-Urine 150 /ul (Negative); Protein-Dipstick 100 mg/dl (Negative); Urine Bilirubin Dipstick Negative (Negative); Urine Clarity Clear (Clear); Urine Urobilinogen Normal (Normal)
[2021-01-21 10:08] LABS: Red Blood Cells-Urine 0-5 SEEN /hpf (0-5)
[2021-01-21 10:23] LABS: Protein, Urine (Random) 52.8 mg/dL (<11.9); Protein:Creat Ratio 303 mg/g CRE (0-200)
[2021-01-21 10:25] LABS: Albumin, Serum 3.9 g/dL (3.2-5.0); BUN 15 mg/dL (7-18); BUN/Creat Ratio 16.2 RATIO (10-20); Calcium,Total 9.7 mg/dL (8.5-10.1); Chloride 104 mmol/L (98-107); Creatinine, Serum 0.92 mg/dL (0.70-1.30); EST Glomerular Filtration Rate 100 mL/min (>60); Est Glom Filt Rate - Afr Amer 120 mL/min (>60); Glucose 100 mg/dL (74-106); Phosphorus 2.4 mg/dL (2.5-4.9); Potassium 4.3 mmol/L (3.5-5.1); Sodium Level 137 mmol/L (136-145)
== END ==
PROVIDERS: PCP Family Medicine
DX: I10 Essential (primary) hypertension (principal); R80.9 Proteinuria, unspecified
CPT/HCPCS: 36415; 80069; 81001; 82043; 82570; 84156

== ENCOUNTER 2021-08-13 20:52 | Inpatient (IN) | payer OTHER, MEDICAID, SELFPAY ==
[2021-08-13 20:53] VITALS: BP 141/91; PULSE 141; RESP 26; TEMP 37.2; O2SAT 95; BMI 32.3
--- NOTE | 2021-08-13 21:33 | EKG12_ITS ---
Test Reason : DYSRYTHMIA Blood Pressure : / mmHG Vent. Rate : 127 BPM Atrial Rate : 127 BPM P-R Int : 132 ms QRS Dur : 084 ms QT Int : 304 ms P-R-T Axes : 032 -80 031 degrees QTc Int : 441 ms Sinus tachycardia Left anterior fascicular block Abnormal ECG Confirmed by RAPHAEL GUZMÁN, JESSICA ([id number]), development editor SHAWN RIVERA ([id number]) on 08/16/2021 10:08:24 AM Referred By: ARIEL Confirmed By:JESSICA LIM MD
--- NOTE | 2021-08-13 21:34 | EX.ED.DYSGE1 ---
HPI History of Present Illness Chief Complaint: Fever Narrative Narrative: 36-year-old male with history of MRDD presenting with fever. His father states that he himself tested positive and has been sick but doing okay. His son became sick yesterday. He had a fever at home for the last 24 hours. Today he has not had anything to eat or drink and has been vomiting. Are unable to control his fever due to him not being able to take Tylenol ibuprofen. He has not had a significant cough. Patient feels generally unwell. His father relates to me that he has a kidney condition which requires him to be on lisinopril. He is unsure what this is called. [facility] Medical History (Updated 08/14/21 @ 00:[address] 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 Sara Simmons MD) History of back surgery Social History Smoking Status: Never smoker ROS ROS ED Review of Systems ROS Unobtainable: due to mental status EXAM Physical Exam Const Vital Signs: 08/13/21 20:53 08/13/21 21:56 08/13/21 21:57 Temperature 99 F Temperature Source Temporal Pulse Rate 141 H 127 H Respiratory Rate 26 H 20 H Blood Pressure 141/91 H Blood Pressure Mean 107 Pulse Ox 95 Oxygen Delivery Method Room Air Positive well nourished Constitutional Narrative: Tachycardic and tachypneic. HEENT Reports dry mucous membranes Negative for trauma Mouth ED: Yes dry mucous membranes Mouth: dry mucous membranes Eyes PERRL and EOMs intact bilaterally Chest Wall inspection of chest normal and palpation of chest normal Resp Resp Narrative: Tachypneic Auscultation: rales diffuse Cardio regular rhythm Rate: tachycardic GI normal to inspection, nondistended, normoactive bowel sounds Neuro Sensorium / Orientation: alert Psych Psych Narrative: Mental status at baseline Skin no rashes or lesions noted MDM MDM MDM Narrative Medical decision making narrative: 36-year-old male with MRDD presenting with fever, nausea, vomiting over the course of the last day. Father is tested positive for Covid and is having minimal symptoms and feels okay. Given patient's tachycardia and tachypnea sepsis work-up was initiated. EKG on my interpretation shows normal sinus rhythm with a ventricular rate of 127 bpm without sign of ischemic change. CBC shows no leukocytosis and patient is lymphopenic. Renal function and electrolytes are normal. LFTs show a slight bump in AST and ALT. Coagulation studies are normal. Urinalysis does not appear to be consistent with infection. Lactic acid is elevated at 5.5. Initial Covid testing is negative. Will send for PCR. Given patient is likely Covid positive and testing negative I did not give him 30 cc/kg. I did give him 1 L of IV fluids, Zofran and the patient is resting comfortably. His heart rate is now down to 114. His respiratory rate is still high at 24. Blood pressure is stable. He is afebrile with an O2 saturation of 96% on room air. His Covid PCR came back positive. Chest x-ray on my interpretation shows a left-sided infiltrate. Due to radiology downtime I was unable to get a formal read. CTA is pending on admission. This will be followed up with by Dr. Simmons. To given lactic acidosis I feel the patient needs to be admitted especially since he has repeat episodes of vomiting and has not been doing well at home. Hospitalist did see the patient and agreed to admission. Impression: 1. COVID-19 pneumonitis 2. Nausea/vomiting 3. Lactic acidosis Lab Data Labs: Laboratory Results - last 24 hr 08/13/21 08/13/21 08/13/21 21:12 21:12 21:12 WBC 5.1 RBC 5.44 Hgb 16.0 Hct 46.3 MCV 85.1 MCH 29.4 MCHC 34.6 RDW Std Deviation 37.9 RDW Coeff of Yumiko 12.3 Plt Count 258 MPV 9.0 Immature Gran % (Auto) 0.600 Neut % (Auto) 66.4 Lymph % (Auto) 16.2 L [place] % (Auto) 14.8 H Eos % (Auto) 0.8 Baso % (Auto) 1.2 H Absolute Neuts (auto) 3.4 Absolute Lymphs (auto) 0.82 L Nucleated RBC % 0 PT INR APTT D-Dimer Quant (PE/DVT) Sodium 137 Potassium 4.2 Chloride 101 Carbon Dioxide 20.0 L Anion Gap 16 H BUN 15 Creatinine 1.05 Estim Creat Clear Calc 101.76 Est GFR (MDRD) Af Amer 104 Est GFR (MDRD) Non-Af 86 BUN/Creatinine Ratio 14.3 Glucose 141 H Lactic Acid 5.5 H* Calcium 8.7 Ferritin Total Bilirubin 0.20 AST 56 H ALT 86 H Alkaline Phosphatase 103 Lactate Dehydrogenase Troponin I High Sens 7 C-React Prot Ext Range B-Natriuretic Peptide Total Protein 7.9 Albumin 3.8 Globulin 4.1 Albumin/Globulin Ratio 0.9 Procalcitonin Urine Color Urine Clarity Urine pH Ur Specific [place] Urine Protein Urine Glucose (UA) Urine Ketones Urine Occult Blood Urine Nitrite Urine Bilirubin Urine Urobilinogen Ur Leukocyte Esterase Urine RBC Urine WBC Ur Squamous Epith Cells Urine Bacteria Hyaline Casts Urine Mucus COVID-19 (LUCIUS) 08/13/21 08/13/21 08/13/21 21:12 21:12 21:12 WBC RBC Hgb Hct MCV MCH MCHC RDW Std Deviation RDW Coeff of Yumiko Plt Count MPV Immature Gran % (Auto) Neut % (Auto) Lymph % (Auto) [place] % (Auto) Eos % (Auto) Baso % (Auto) Absolute Neuts (auto) Absolute Lymphs (auto) Nucleated RBC % PT INR APTT D-Dimer Quant (PE/DVT) Sodium Potassium Chloride Carbon Dioxide Anion Gap BUN Creatinine Estim Creat Clear Calc Est GFR (MDRD) Af Amer Est GFR (MDRD) Non-Af BUN/Creatinine Ratio Glucose Lactic Acid Calcium Ferritin 209 Total Bilirubin AST ALT Alkaline Phosphatase Lactate Dehydrogenase 224 Troponin I High Sens C-React Prot Ext Range 19.60 H B-Natriuretic Peptide 7.7 Total Protein Albumin Globulin Albumin/Globulin Ratio Procalcitonin 0.15 H Urine Color Urine Clarity Urine pH Ur Specific [place] Urine Protein Urine Glucose (UA) Urine Ketones Urine Occult Blood Urine Nitrite Urine Bilirubin Urine Urobilinogen Ur Leukocyte Esterase Urine RBC Urine WBC Ur Squamous Epith Cells Urine Bacteria Hyaline Casts Urine Mucus COVID-19 (LUCIUS) 08/13/21 08/13/21 08/13/21 21:20 21:20 21:54 WBC RBC Hgb Hct MCV MCH MCHC RDW Std Deviation RDW Coeff of Yumiko Plt Count MPV Immature Gran % (Auto) Neut % (Auto) Lymph % (Auto) [place] % (Auto) Eos % (Auto) Baso % (Auto) Absolute Neuts (auto) Absolute Lymphs (auto) Nucleated RBC % PT 12.9 Cancelled INR 1.0 Cancelled APTT 40.6 H Cancelled D-Dimer Quant (PE/DVT) 0.80 H* Sodium Potassium Chloride Carbon Dioxide Anion Gap BUN Creatinine Estim Creat Clear Calc Est GFR (MDRD) Af Amer Est GFR (MDRD) Non-Af BUN/Creatinine Ratio Glucose Lactic Acid Calcium Ferritin Total Bilirubin AST ALT Alkaline Phosphatase Lactate Dehydrogenase Troponin I High Sens C-React Prot Ext Range B-Natriuretic Peptide Total Protein Albumin Globulin Albumin/Globulin Ratio Procalcitonin Urine Color Urine Clarity Urine pH Ur Specific [place] Urine Protein Urine Glucose (UA) Urine Ketones Urine Occult Blood Urine Nitrite Urine Bilirubin Urine Urobilinogen Ur Leukocyte Esterase Urine RBC Urine WBC Ur Squamous Epith Cells Urine Bacteria Hyaline Casts Urine Mucus COVID-19 (LUCIUS) 08/13/21 08/13/21 21:59 22:35 WBC RBC Hgb Hct MCV MCH MCHC RDW Std Deviation RDW Coeff of Yumiko Plt Count MPV Immature Gran % (Auto) Neut % (Auto) Lymph % (Auto) [place] % (Auto) Eos % (Auto) Baso % (Auto) Absolute Neuts (auto) Absolute Lymphs (auto) Nucleated RBC % PT INR APTT D-Dimer Quant (PE/DVT) Sodium Potassium Chloride Carbon Dioxide Anion Gap BUN Creatinine Estim Creat Clear Calc Est GFR (MDRD) Af Amer Est GFR (MDRD) Non-Af BUN/Creatinine Ratio Glucose Lactic Acid Calcium Ferritin Total Bilirubin AST ALT Alkaline Phosphatase Lactate Dehydrogenase Troponin I High Sens C-React Prot Ext Range B-Natriuretic Peptide Total Protein Albumin Globulin Albumin/Globulin Ratio Procalcitonin Urine Color Yellow Urine Clarity Sl. Cloudy Urine pH 6.0 Ur Specific [place] 1.020 Urine Protein 500 H Urine Glucose (UA) Normal Urine Ketones Negative Urine Occult Blood 250 H Urine Nitrite Negative Urine Bilirubin Negative Urine Urobilinogen Normal Ur Leukocyte Esterase 25 H Urine RBC 25-50 SEEN Urine WBC 0-5 SEEN Ur Squamous Epith Cells 0 SEEN Urine Bacteria RARE Hyaline Casts 0-5 SEEN Urine Mucus 0 SEEN COVID-19 (LUCIUS) Detected Discharge Plan Triage Chief Complaint: Fever Other Complaint: Nausea/Vomiting ED Provider: Gary Currie Dx/Rx/DC Orders Primary Care Provider: Antonio Lucas
[2021-08-13 21:43] LABS: Absolute Lymphocyte Count 0.82 X10^3/uL (0.83-4.51); Absolute Neutrophil Count 3.4 X10^3/uL (2.0-7.7); Basophil# 0.06 X10^3/uL; Basophil% 1.2 % (0-1); Eosinophil# 0.04 X10^3/uL; Eosinophils% 0.8 % (0-5); Hematocrit 46.3 % (40-54); Lymphocyte # 0.82 X10^3/ul (0.83-4.51); Lymphocyte % 16.2 % (19-41); Mean Corp Hgb Conc 34.6 g/dL (32-36); Mean Corpuscular Hgb 29.4 pg (27.0-32.0); Mean Corpuscular Volume 85.1 fL (80-94); Monocyte# 0.75 X10^3/uL; Monocyte% 14.8 % (0-10); NRBC Flagged by Analyzer 0 % (0-5); Neutrophil # 3.36 X10^3/uL (2.7-7.7); Neutrophil % 66.4 % (47-70); Platelet Count 258 K/mm3 (150-450); RBC Distribution Width CV 12.3 % (11.6-14.6); RBC Distribution Width SD 37.9 fl (35.1-43.9); Red Blood Count 5.44 M/mm3 (4.6-6.2); White Blood Count 5.1 K/mm3 (4.4-11.0)
--- NOTE | 2021-08-13 21:43 | ED.RN ---
NO OLD EKGS
[2021-08-13] MEDS: Ondansetron 4 MG/2 ML Vial IV (21:52)
[2021-08-13 21:55] LABS: ALB/GLOB Ratio 0.9 RATIO (0.9-2.4); AST(SGOT) 56 U/L (15-37); Alanine Aminotransfer ALT/SGPT 86 U/L (16-61); Albumin, Serum 3.8 g/dL (3.2-5.0); Alkaline Phosphatase 103 U/L (45-117); Anion Gap 16 (5-15); BUN 15 mg/dL (7-18); BUN/Creat Ratio 14.3 RATIO (10-20); Calcium,Total 8.7 mg/dL (8.5-10.1); Chloride 101 mmol/L (98-107); Creatinine, Serum 1.05 mg/dL (0.70-1.30); EST Glomerular Filtration Rate 86 mL/min (>60); Est Glom Filt Rate - Afr Amer 104 mL/min (>60); Estimated Creatinine Clearance 101.76 ml/min; Globulin 4.1 g/dL (2.2-4.2); Glucose 141 mg/dL (74-106); Potassium 4.2 mmol/L (3.5-5.1); Protein, Total 7.9 g/dL (6.4-8.2); Sodium Level 137 mmol/L (136-145); Troponin-I HS 7 pg/mL (3.0-78.0)
[2021-08-13 21:56] LABS: Lactic Acid 5.5 mmol/L (0.4-1.9)
[2021-08-13 21:57] VITALS: PULSE 127; RESP 20
--- NOTE | 2021-08-13 22:01 | RAD_ITS ---
EXAM: XR Chest, 1 View CLINICAL INDICATION: 36 years old, Male; cough TECHNIQUE: Frontal view of the chest. This report was created using [employer] report generation technology. COMPARISON: Chest x-ray dated 03/08/2018. FINDINGS: Lungs and pleural spaces: Atelectasis in the lung bases. No pneumothorax. No effusion. Heart: Unremarkable. Cardiac silhouette not enlarged. Mediastinum: Central airways and mediastinal contour are unremarkable. Bones/joints: Postop changes thoracic spine. Soft tissues: Unremarkable. RAD/Chest 1 View (Portable) IMPRESSION: No acute findings in the chest. ASSESSMENT: INCIDENTAL report - The findings in this report are either known or are not significant. Electronically Signed: Melo Benjamin MD at 3:31 EDT Tel , Service support ,
[2021-08-13 22:06] LABS: Mucous, Urine 0 SEEN /hpf (<or=2+); Squamous Epithelial Cells - UA 0 SEEN /hpf (0-5)
[2021-08-13 22:07] LABS: Color, Urine Yellow (Yellow); Glucose, Dipstick Normal (Normal); Ketone-Dipstick Negative (Negative); Leukocyte Esterase-Dipstick 25 /ul (Negative); Nitrite-Dipstick Negative (Negative); Occult Blood-Urine 250 /ul (Negative); Protein-Dipstick 500 mg/dl (Negative); Urine Bilirubin Dipstick Negative (Negative); Urine Clarity Sl. Cloudy (Clear); Urine Urobilinogen Normal (Normal)
[2021-08-13 22:13] LABS: Bacteria RARE /hpf (None Seen); Hyaline Cast 0-5 SEEN /lpf (0-5); Red Blood Cells-Urine 25-50 SEEN /hpf (0-5); White Blood Cells 0-5 SEEN /hpf (0-5)
--- NOTE | 2021-08-13 22:49 | CT_ITS ---
EXAM: CT Angiography Chest Without and With Intravenous Contrast CLINICAL INDICATION: 36 years old, Male; FEVER, N/V TECHNIQUE: Helically acquired angiography images were obtained of the chest without and with intravenous contrast. This CT exam was performed using one or more of the following dose reduction techniques: automated exposure control, adjustment of the mA and/or kV according to patient size, and/or use of iterative reconstruction technique. This report was created using [employer] report generation technology. MIP reconstructed images were created and reviewed. CONTRAST: IV 100mL [id number] COMPARISON: CT chest dated 03/08/2018. FINDINGS: Artifacts: Motion artifact. Pulmonary arteries: Unremarkable. Normal in caliber. No pulmonary embolism is identified. Motion artifact limits evaluation of the distal pulmonary arteries. Aorta: Unremarkable. Normal in caliber. No evidence of dissection. Great vessels of aortic arch: Unremarkable. Normal in caliber. No evidence of dissection. Lungs and pleural spaces: Unremarkable. No mass. No consolidation or edema. No pleural effusion or thickening. No pneumothorax. Heart: Unremarkable. Heart size is normal. No pericardial effusion. No signs of right heart strain, ratio of right ventricle to left ventricle measures less than 1. Mediastinum: Unremarkable. No mediastinal or hilar adenopathy. Esophagus is unremarkable. No hiatal hernia. Thyroid: Unremarkable. No thyroid lesions. Bones/joints: Postoperative changes thoracic spine. No suspicious lytic or blastic abnormality. CT/CTA Chest W/WO Contrast IMPRESSION: No pulmonary embolism is identified. Motion artifact limits evaluation of the distal pulmonary arteries. ASSESSMENT: INCIDENTAL report - The findings in this report are either known or are not significant. Electronically Signed: Melo Benjamin MD at 4:54 EDT Tel , Service support ,
[2021-08-13 22:53] LABS: Prothrombin Time (Protime)PT. 12.9 SECONDS (11.7-14.9)
[2021-08-13 23:09] LABS: Partial Thromboplast Time 40.6 Seconds (24.1-36.2)
[2021-08-14] VITALS (12 sets, daily range): BP systolic 111–132; BP diastolic 66–98; PULSE 91–120; RESP 16–24; TEMP 36.7–37.8; O2SAT 94–98; BMI 34.8
--- NOTE | 2021-08-14 00:12 | HP.PCM.HOS_ITS ---
HPI - General General Date of Admission: 08/14/21 Date of Service: 08/14/21 Chief Complaint: Dyspnea, fever, tachypnea, N/V, poor intake, patient's father with COVID. 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 Patient has not been vaccinated against COVID. Work-up in the ED included T 99.6, heart rate up to 141, BP 141/91, respiratory rate 26, 94% on Room air-95% on 2 L nasal cannula, CBC with WBC 5.1, hemoglobin 16, platelet 258 with lymphopenia, CMP with carbon oxide 20, anion gap 16, BUN/creatinine 15/1.05, glucose 141, lactic acid 5.5, AST/ALT 56/86, high-sensitivity troponin 7, negative Covid antigen with PCR pending obtained given history and noted to be positive, urinalysis without any evidence UTI, CXR with appearance BL patchy infiltrates but awaiting radiology read, CTPA pending upon admission. In the ED patient administered IV zofran. [facility] Medical History (Updated 08/14/21 @ 00:[address] 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 Sara Simmons MD) Mother Hypertension Father GERD (gastroesophageal reflux disease) Surgical History (Updated 08/14/21 @ 01:[address] Sara Simmons MD) History of back surgery Status post eye surgery Social History (Updated 08/14/21 @ 01:[address] Sara Simmons MD) household members: family Smoking Status: Never smoker alcohol intake: never substance use type: does not use ROS ROS Narrative Admission ROS provided by patient's father. Admission Review of Systems: CONSTITUTIONAL: No weight loss, + fever, chills, weakness or fatigue. HEENT: + Right eye vision loss status post resection with retinoblastoma history. Eyes: No visual loss, blurred vision, double vision or yellow sclerae. Ears, Nose, Throat: + congestion, runny nose, sore throat. SKIN: No rash or itching, lesions, wounds. CARDIOVASCULAR: No chest pain, chest pressure or chest discomfort, palpitations, edema, orthopnea, syncopal events. RESPIRATORY: + shortness of breath, cough without marked sputum, No wheezing, hemoptysis. GASTROINTESTINAL: + anorexia, nausea, vomiting, No diarrhea, abdominal pain, melena, BRBPR. GENITOURINARY: No dysuria, frequency, urgency or retention. NEUROLOGICAL: No headache, dizziness, syncope, paralysis, ataxia, numbness or tingling in the extremities, focal weakness, change in bowel or bladder control, seizure. MUSCULOSKELETAL: + muscle, back pain, joint pain or stiffness. HEMATOLOGIC: No anemia, bleeding or bruising. LYMPHATICS: No enlarged nodes. No history of splenectomy. PSYCHIATRIC: No history of depression or anxiety. ENDOCRINOLOGIC: No reports of sweating, cold or heat intolerance. No polyuria or polydipsia. ALLERGIES: + history of asthma, hives, eczema or rhinitis. Vital Signs Vital Signs Vital Signs: 08/13/21 20:53 08/13/21 21:56 08/13/21 21:57 Temperature 99 F Temperature Source Temporal Pulse Rate 141 H 127 H Respiratory Rate 26 H 20 H Blood Pressure 141/91 H Blood Pressure Mean 107 Pulse Ox 95 Oxygen Delivery Method Room Air Weight Weight: 160 lb Body Mass Index (BMI) 32.3 Physical Exam Narrative Physical Examination: General: Awake, alert, patient has underlying MRDD with significant chromosomal abnormality, laying in the ED bed, curled on his side, ill appearing. Skin: Normal color, normal turgor, no icterus, no cyanosis. HEENT: AT/NC, EOM left eye intact, right eye status post globe resection with history of retinoblastoma, dry MM, no obvious carotid bruit or JVD however thickened neck makes examination difficult. Lungs: Diffusely diminished, greater bases, increased respiratory rate, no rales, ronchi or wheezing. Heart: Tachycardic with regular rhythm; no gallop, rub audible. Abdomen: Soft, obese, no obvious grimacing with palpation, no obvious distention, mildly hyperactive bowel sounds, no obvious HSM. Extremities: No cyanosis, clubbing, or edema. Neurological: Patient awake, alert, oriented as noted, cognitive function decr eased baseline with underlying MRDD however significantly worsened, not baseline intact, cranial nerves grossly normal aside deficits with right eye resection, moving all 4 extremities, no focal deficits, strength severely global decrease secondary to acute presentation. Psychiatric: Affect appears ill-appearing, no acute evidence of depressive or anxiety feelings. Results Lab / Micro Data Result Diagrams: 08/13/21 21:12 08/13/21 21:12 Labs: Laboratory Results - last 24 hr 08/13/21 21:12: WBC 5.1, RBC 5.44, Hgb 16.0, Hct 46.3, MCV 85.1, MCH 29.4, MCHC 34.6, RDW Std Deviation 37.9, RDW Coeff of Yumiko 12.3, Plt Count 258, MPV 9.0, Immature Gran % (Auto) 0.600, Neut % (Auto) 66.4, Lymph % (Auto) 16.2 L, [place] % (Auto) 14.8 H, Eos % (Auto) 0.8, Baso % (Auto) 1.2 H, Absolute Neuts (auto) 3.4, Absolute Lymphs (auto) 0.82 L, Nucleated RBC % 0 08/13/21 21:12: Sodium 137, Potassium 4.2, Chloride 101, Carbon Dioxide 20.0 L, Anion Gap 16 H, BUN 15, Creatinine 1.05, Estim Creat Clear Calc 101.76, Est GFR (MDRD) Af Amer 104, Est GFR (MDRD) Non-Af 86, BUN/Creatinine Ratio 14.3, Glucose 141 H, Calcium 8.7, Total Bilirubin 0.20, AST 56 H, ALT 86 H, Alkaline Phosphatase 103, Troponin I High Sens 7, Total Protein 7.9, Albumin 3.8, Globulin 4.1, Albumin/Globulin Ratio 0.9 08/13/21 21:12: Lactic Acid 5.5 H* 08/13/21 21:20: PT 12.9, INR 1.0, APTT 40.6 H 08/13/21 21:54: PT Cancelled, INR Cancelled, APTT Cancelled 08/13/21 21:59: Urine Color Yellow, Urine Clarity Sl. Cloudy, Urine pH 6.0, Ur Specific [place] 1.020, Urine Protein 500 H, Urine Glucose (UA) Normal, Urine Ketones Negative, Urine Occult Blood 250 H, Urine Nitrite Negative, Urine Bilirubin Negative, Urine Urobilinogen Normal, Ur Leukocyte Esterase 25 H, Urine RBC 25-50 SEEN, Urine WBC 0-5 SEEN, Ur Squamous Epith Cells 0 SEEN, Urine Bacteria RARE, Hyaline Casts 0-5 SEEN, Urine Mucus 0 SEEN Micro: Microbiology 08/13/21 21:45 Nasal Secretion SARS-CoV-2 Antigen (Rapid) - Final Assessment & Plan Assessment/Plan (1) Suspected COVID-19 virus infection: PLAN: The patient is a 36 y/o M w/ PMHx: Hx, Hx Aspiration PNA, MRDD with Deletion Chromosome 13q, Scoliosis, Asthma, Atopic Dermatitis who presents to the [facility] ED on 08/13/21 with history of onset of shortness of breath without marked associated cough, tachypnea, fever as well as nausea and vomiting over the last 24 hours with poor oral intake and inability to break his fever as unab le to even keep down medications with his father recently diagnosed with COVID. 1. Acute Hypoxia, Intractable N/V secondary to Acute BL PNA secondary to Acute Viral Syndrome, COVID-19, complicated by #2 with lactic acidosis suspected secondary to severe dehydration: CXR final read pending of note and CTPA pending upon evaluation. We will admit to PCU given significant tachycardia associated, maintain on telemetry monitoring under Covid precautions, will maintain on oxygen with wean as tolerated to room air, PRN albuterol, HOB, IS parameters, trend lactic acid per facility protocol with judicious hydration given acute diagnosis, obtain sputum cultures, respiratory viral panel and urine antigens, will obtain D-dimer, procalcitonin, CRP, CPK, Ferritin, LDH, trop and BNP, continue supportive care including q 2 hour turning, closely monitor for worsening status for ARDS and multiorgan failure, given hypoxia noted in the ED to 90-94% during evaluation, will initiate and continue IV decadron x 10 doses as well as IV remdesivir but defer to discretion of Infectious disease. 2. Hyperglycemia: No diabetic history, admission glucose 141, possibly stress response, will obtain A1c be cautious especially given elevated anion gap although likely secondary to lactic acidosis as noted. 3. Elevated LFTs: Admission AST/ALT 56/86, likely secondary to #1, continue to treat as noted, cautiously monitor levels especially given remdesivir usage, repeat CMP in AM. 4. 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 May add speech therapy if concerns. 5. Chronic asthma with allergic rhinitis: We will continue patient home fluticasone, Zyrtec, head of bed, encourage I-S however #2 makes aggressive usage difficult, as needed albuterol. 6. Hypertension: Continue home regimen including lisinopril with hold parameters as needed, PRN hydralazine. 7. Obesity: Weight loss and lifestyle changes encouraged. 8. DVT prophylaxis: SCDs, Lovenox. 9. CODE status: Patient does not have healthcare power of health promotion specialist nor living will but is MRDD status and his parents make his decisions. CODE status at length including difference between FULL code, DNR-CCA and DNR-CC status given his acute presentation with Covid status. Following discussions about the differences in these status, requested Full Code status. Advanced Care Planning Face to Face Time: 16 minutes. Charges/Coding Visit Charges Inpatient E&M: 67402 Init Hosp L3 Procedures Hospitalists Procedures: 69368 Advncd Care Plan 30 Min
[2021-08-14 00:51] LABS: BNP,B-Type NATRIURETIC PEPTIDE 7.7 pg/mL (0-100)
[2021-08-14 00:56] LABS: Ferritin 209 ng/mL (26-388); LDH 224 U/L (87-241)
[2021-08-14 00:59] LABS: Procalcitonin 0.15 ng/mL (0.00-0.09)
[2021-08-14 01:37] LABS: Reflex Lactate? Y
[2021-08-14] MEDS: Ondansetron 4 MG/2 ML Vial IV ×2 (02:49→11:57)
--- NOTE | 2021-08-14 02:57 | PCS.PANDOC ---
PANDEMIC DOCUMENTATION INITIATED: Date: 07/03/2021 Time: 190
[2021-08-14] MEDS: 0.9% Normal Saline 1,000 ML 100 ML IV ×2 (03:03→14:08)
[2021-08-14 03:13] LABS: Absolute Lymphocyte Count 0.87 X10^3/uL (0.83-4.51); Absolute Neutrophil Count 3.3 X10^3/uL (2.0-7.7); Basophil# 0.02 X10^3/uL; Basophil% 0.4 % (0-1); Eosinophil# 0.02 X10^3/uL; Eosinophils% 0.4 % (0-5); Hematocrit 43.4 % (40-54); Hemoglobin 15.2 g/dL (13.0-16.5); Lymphocyte # 0.87 X10^3/ul (0.83-4.51); Lymphocyte % 17.6 % (19-41); Mean Corpuscular Hgb 29.6 pg (27.0-32.0); Mean Corpuscular Volume 84.4 fL (80-94); Mean Platelet Vol. 8.9 fl (6.2-12.0); Monocyte# 0.68 X10^3/uL; Monocyte% 13.7 % (0-10); Neutrophil # 3.33 X10^3/uL (2.7-7.7); Neutrophil % 67.3 % (47-70); Platelet Count 236 K/mm3 (150-450); RBC Distribution Width CV 12.3 % (11.6-14.6); RBC Distribution Width SD 37.6 fl (35.1-43.9); Red Blood Count 5.14 M/mm3 (4.6-6.2)
[2021-08-14 03:36] LABS: ALB/GLOB Ratio 0.9 RATIO (0.9-2.4); AST(SGOT) 61 U/L (15-37); Alanine Aminotransfer ALT/SGPT 93 U/L (16-61); Albumin, Serum 3.9 g/dL (3.2-5.0); Alkaline Phosphatase 102 U/L (45-117); Anion Gap 17 (5-15); BUN 15 mg/dL (7-18); BUN/Creat Ratio 14.3 RATIO (10-20); Calcium,Total 8.9 mg/dL (8.5-10.1); Chloride 101 mmol/L (98-107); Creatinine, Serum 1.05 mg/dL (0.70-1.30); EST Glomerular Filtration Rate 86 mL/min (>60); Est Glom Filt Rate - Afr Amer 104 mL/min (>60); Estimated Creatinine Clearance 109.79 ml/min; Globulin 4.2 g/dL (2.2-4.2); Glucose 139 mg/dL (74-106); Potassium 4.3 mmol/L (3.5-5.1); Protein, Total 8.1 g/dL (6.4-8.2); Sodium Level 136 mmol/L (136-145)
[2021-08-14 03:40] LABS: Lactic Acid 0.9 mmol/L (0.4-1.9)
[2021-08-14] MEDS: Fluticasone 0.05% 1 SPRAY NASAL.SRY 2 SPRAY NASAL (09:18)
[2021-08-14] MEDS: proCHLORPERazine 10 MG/2 ML Vial 5 MG IV (09:24)
[2021-08-14] MEDS: Enoxaparin 30 MG/0.3 ML Syringe SC ×2 (09:26→22:47)
[2021-08-14 12:13] LABS: Anion Gap 7 (5-15); BUN 16 mg/dL (7-18); BUN/Creat Ratio 20.3 RATIO (10-20); Calcium,Total 8.1 mg/dL (8.5-10.1); Chloride 108 mmol/L (98-107); Creatinine, Serum 0.79 mg/dL (0.70-1.30); EST Glomerular Filtration Rate 119 mL/min (>60); Est Glom Filt Rate - Afr Amer 144 mL/min (>60); Estimated Creatinine Clearance 145.92 ml/min; Glucose 118 mg/dL (74-106); Potassium 3.9 mmol/L (3.5-5.1); Sodium Level 140 mmol/L (136-145)
--- NOTE | 2021-08-14 13:58 | CASEMGMT ---
HYUN POP assessment: Initial transition planning/care coordination assessment. HYUN POP introduced self and role at [facility], pt's mom voices understanding and consents to assessment. Pt has deletion of chromosome 13q which causes pt be mentally handicapped so mother at bedside. Pt is lying in bed on room air sleeping with no distress. Pt's mother/green coffee blender at bedside and answers all questions for pt at this time. Parents are both COVID + and symptomatic as well. Mother states no concerns with getting resources once home. Care providers, pharmacy, and demographics verified. Presentation: Pt w/ SOB, fever, N/V-parents are COVID + Admitting dx: COVID +, lactic acidosis PCP: Lance Specialists: Nephroman Preferred Pharmacy: [facility] [place] [facility] [place] [facility] Prescription Benefit: Yes Living Will/HPOA: Pt's parents are caretakers and make all decisions for pt. LNOK: [place]/Camryn Berg, parents Living Arrangements: Pt lives with parents in 1 story home with 4 steps in and parents assist pt with all ADL's. Transportation: Parents drive and state no transportation concerns. DME/HHC: Pt with no current DME or need for any DME. Mom states no preference for DME company, if pt qualifies for home oxygen at discharge. Pt with no hx of HHC or SNF. Mother states no concerns with taking pt home at discharge. Pt is disabled. Pt is not exposed to 2nd hand smoke or drink ETOH. Mother voices no further concerns/needs. CM to follow for home oxygen testing and any further discharge planning/needs. Advised mother to ask for CM if any further questions/concerns/needs arise, voices understanding. Plan: Home w/ parents, pending home oxygen testing. . [place] HYUN POP
[2021-08-14] MEDS: Haloperidol Lactate 5 MG/ML Vial 1 MG IV (14:09)
--- NOTE | 2021-08-14 15:48 | PN.HOSP_ITS ---
Hospitalist Note Mr. Berg is a 36-year-old white male with a history of MRDD secondary to deletion of chromosome and 13q with associated right eye retinoblastoma status post resection and history of scoliosis who presented to the emergency department at [facility] on the evening of 08/13/2021. He was admitted early this morning. Upon presentation he was found to have shortness of breath, tachypnea, fever, nausea, and vomiting that had started within the last 24 hours. He had had poor oral intake at home and they were unable to break his fever as he had been unable to keep down medications. His father was recently diagnosed with COVID-19. The patient has not been vaccinated against COVID-19. His rapid Covid antigen was negative but his PCR was positive. His chest x-ray showed patchy bilateral infiltrates. He remains on room air this time but persists to have ongoing nausea and vomiting. His antiemetic has been changed to Haldol at this point given no relief with previous antiemetics. He remains on room air. Decadron and remdesivir were initiated upon admission. He is also having significant itching which is a chronic problem for him and we have ordered a trial of Benadryl to see if this decreases his itching. His mother is at the bedside given his history of MRDD. He was sleeping upon my examination today. I did discuss with the patient's mother if he maintains stability on room air and we can get him eating and drinking without any issues we can talk about discharge home but until that time he will need to remain in the hospital. Diagnoses: COVID-19 infection Nausea and vomiting Poor p.o. intake Lactic acidosis-resolved Dehydration-resolved Metabolic acidosis-resolved Hyperglycemia Transaminitis MRDD with deletion chromosome 13 q. Asthma Allergic rhinitis Hypertension Obesity
[2021-08-14] MEDS: DiphenhydrAMINE 50 MG/ML Syringe 12.5 MG IV (16:10)
[2021-08-15] VITALS (7 sets, daily range): BP systolic 128–144; BP diastolic 78–105; PULSE 92–108; RESP 18–20; TEMP 36.9–37.2; O2SAT 94–98
[2021-08-15] MEDS: 0.9% Normal Saline 1,000 ML 100 ML IV (01:45)
[2021-08-15 07:00] LABS: Absolute Lymphocyte Count 1.58 X10^3/uL (0.83-4.51); Absolute Neutrophil Count 2.7 X10^3/uL (2.0-7.7); Basophil# 0.02 X10^3/uL; Basophil% 0.4 % (0-1); Eosinophil# 0.01 X10^3/uL; Eosinophils% 0.2 % (0-5); Hematocrit 42.3 % (40-54); Lymphocyte # 1.58 X10^3/ul (0.83-4.51); Lymphocyte % 32.2 % (19-41); Mean Corp Hgb Conc 33.1 g/dL (32-36); Mean Corpuscular Hgb 28.9 pg (27.0-32.0); Mean Corpuscular Volume 87.4 fL (80-94); Mean Platelet Vol. 8.6 fl (6.2-12.0); Monocyte# 0.58 X10^3/uL; Monocyte% 11.8 % (0-10); NRBC Flagged by Analyzer 0 % (0-5); Platelet Count 207 K/mm3 (150-450); RBC Distribution Width CV 12.3 % (11.6-14.6); RBC Distribution Width SD 39.5 fl (35.1-43.9); Red Blood Count 4.84 M/mm3 (4.6-6.2); White Blood Count 4.9 K/mm3 (4.4-11.0)
[2021-08-15 07:16] LABS: ALB/GLOB Ratio 0.9 RATIO (0.9-2.4); AST(SGOT) 41 U/L (15-37); Alanine Aminotransfer ALT/SGPT 57 U/L (16-61); Alkaline Phosphatase 74 U/L (45-117); Anion Gap 11 (5-15); BUN 17 mg/dL (7-18); Calcium,Total 8.2 mg/dL (8.5-10.1); Chloride 109 mmol/L (98-107); Creatinine, Serum 0.77 mg/dL (0.70-1.30); EST Glomerular Filtration Rate 122 mL/min (>60); Est Glom Filt Rate - Afr Amer 147 mL/min (>60); Estimated Creatinine Clearance 149.71 ml/min; Globulin 3.4 g/dL (2.2-4.2); Glucose 91 mg/dL (74-106); Potassium 3.8 mmol/L (3.5-5.1); Protein, Total 6.4 g/dL (6.4-8.2); Sodium Level 142 mmol/L (136-145)
[2021-08-15] MEDS: Enoxaparin 30 MG/0.3 ML Syringe SC (09:21)
[2021-08-15] MEDS: dexAMETHasone 4 MG/ML Vial 6 MG IV (09:21)
[2021-08-15] MEDS: 0.9% Normal Saline 1,000 ML 50 ML IV (12:05)
--- NOTE | 2021-08-15 16:05 | PCM.DC.SUM ---
Providers Date of Admission: 08/14/21 Primary Care Physician: Dr. Antonio Lucas MD Reason For Visit: SUSPECTED COVID, LACTIC ACIDOSIS Diagnosis Discharge Diagnosis (1) Suspected COVID-19 virus infection: Status: Acute Code(s): Z20.822 - Contact with and (suspected) exposure to COVID-19 Medications at Discharge Home Medications Zyrtec 10 mg PO DAILY 03/08/18 diphenhydramine HCl [Banophen] 25 mg PO BID PRN PRN 03/08/18 fluticasone propionate 2 spray NASAL DAILY 03/08/18 lisinopril 10 mg PO DAILY 08/13/21 ondansetron HCl [Zofran] 4 mg PO Q8H PRN #12 tab 08/15/21 Hospital Course Summary of Care Provided Minutes Spent on Discharge: 45 Hospital Course: Jc Berg is a 36-year-old white male with a history of MRDD secondary to deletion of chromosome on 13 q. with associated right eye retinoblastoma status post resection and history of scoliosis who presented to the emergency department at [facility] on the evening of 08/13/2021 due to intractable nausea and vomiting. Upon presentation he was found to be short of breath with tachycardia, tachypnea, fever, nausea, and vomiting that started 24 hours previously. He had poor oral intake at home and they were unable to break his fever as he was unable to keep down any Tylenol. His father had been recently diagnosed with COVID-19 and the patient was not vaccinated against COVID-19. His rapid antigen test was negative but his PCR was positive. His chest x-ray showed patchy bilateral infiltrates but the patient never required supplementation with oxygen during his hospitalization. He was started on Decadron and remdesivir. During the entirety of his stay he remained on room air with oxygen saturations anywhere from 94 to 98%. He was discharged in stable condition on 08/15/2021 with a referral for monoclonal antibody infusion given his risk factors and current status. I did instruct him to quarantine for total of 10 days since he was never hypoxic. The family indicated they would keep a close eye on him and bring him back if anything changed. He is to follow-up with his PCP within 1 week. I did discharge him with some as needed Zofran. There is currently no need for continue Decadron as the patient has not been hypoxic during his stay. End of quarantine is 08/23/2021. Discharge diagnoses: COVID-19 infection Intractable nausea and vomiting-resolved Transaminitis MRDD with deletion of chromosome 13 q. Scoliosis Asthma Allergic rhinitis Hypertension Obesity Physical Exam Const alert Constitutional Narrative: Obese middle-aged white male with MRDD sitting up in the chair at the bedside, mother on the bed, patient appears much improved and was able to tolerate p.o. diet without any issues General Appearance: cooperative, comfortable and well developed Orientation / Consciousness: awake Exam Limitations: altered mental status HEENT normocephalic and head/scalp atraumatic Resp normal respiratory effort, no retractions, no use of accessory muscles and clear to auscultation bilaterally Auscultation: Negative for crackles, rales, rhonchi or wheezes Cardio regular rhythm, S1 normal heart sound, S2 normal heart sound, no murmurs, no rub, no gallops, no clicks and no JVD Cardio Narrative: Very mild tachycardia GI normal to inspection, nondistended, normoactive bowel sounds, non-tender and non-distended Extremity no clubbing, cyanosis or edema Neuro moves all extremities and no focal motor deficits Sensorium / Orientation: awake and alert Weight / BMI Weight Weight: 78.3 kg Body Mass Index (BMI) 34.8 ABG / Lab / Microbiology Data Result Diagrams: 08/15/21 06:47 08/15/21 06:47 Laboratory: Laboratory Results - last 24 hr 08/15/21 06:47: WBC 4.9, RBC 4.84, Hgb 14.0, Hct 42.3, MCV 87.4, MCH 28.9, MCHC 33.1 D, RDW Std Deviation 39.5, RDW Coeff of Yumiko 12.3, Plt Count 207, MPV 8.6, Immature Gran % (Auto) 0.400, Neut % (Auto) 55.0, Lymph % (Auto) 32.2, [place] % (Auto) 11.8 H, Eos % (Auto) 0.2, Baso % (Auto) 0.4, Absolute Neuts (auto) 2.7, Absolute Lymphs (auto) 1.58, Nucleated RBC % 0 08/15/21 06:47: Sodium 142, Potassium 3.8, Chloride 109 H, Carbon Dioxide 22.0, Anion Gap 11, BUN 17, Creatinine 0.77, Estim Creat Clear Calc 149.71, Est GFR (MDRD) Af Amer 147, Est GFR (MDRD) Non-Af 122, BUN/Creatinine Ratio 22.0 H, Glucose 91, Calcium 8.2 L, Total Bilirubin 0.30, AST 41 H, ALT 57, Alkaline Phosphatase 74, Total Protein 6.4, Albumin 3.0 L, Globulin 3.4, Albumin/Globulin Ratio 0.9 Microbiology: Microbiology 08/13/21 21:59 Urine, Clean Catch Urine Culture - Preliminary Culture exhibits no growth. 08/14/21 Unknown Urine, Random Legionella Antigen - Final 08/14/21 Unknown Urine, Random Streptococcus pneumoniae Antigen (M - Final 08/13/21 22:35 Mucosa - Nasopharyngeal Respiratory Panel (PCR) - Final 08/13/21 21:45 Nasal Secretion SARS-CoV-2 Antigen (Rapid) - Final D/C Instructions Discharge Diet: [place] diet Meaningful Use Info Meaningful Use Diagnoses (Choose all that apply): None applicable Discharge Plan Admission Admit Date/Time: 08/14/21 00:15 Primary Reason for Your Visit: Intractable nausea and vomiting secondary to COVID-19 Attending Provider: Maria L Murrieta Primary Care Provider: Antonio Lucas Consulting Providers: So Lopez NP Instructions Additional Instructions / Restrictions: 1. Referral was made for monoclonal antibody infusion-please follow-up 2. We will need to quarantine and until 08/23/2021 which is 10 days Discharge Orders/Prescriptions Prescriptions: New ondansetron HCl [Zofran] 4 mg tablet 4 mg PO Q8H PRN (Reason: nausea and vomiting) Qty: 12 RF: 0 Continued diphenhydramine HCl [Banophen] 25 MG capsule 25 mg PO BID PRN PRN (Reason: Allergies) RF: 0 fluticasone propionate 1 SPRAY spray,suspension 2 spray NASAL DAILY RF: 0 Zyrtec 10 MG capsule 10 mg PO DAILY RF: 0 lisinopril 10 mg Tablet 10 mg PO DAILY RF: 0 Other Ambulatory Orders: COVID Outpatient Monoclonal Antibody Referral (Routine) Timeframe: 1 Day Facility: [facility] - Location: [facility] Ordered By: Dr. Maria L Murrieta Referrals / Follow Up: Antonio Lucas MD [Primary Care Provider] - In 1 Week Disposition Disposition (needs filled in before D/C Order can be placed): Home, Self Care Charges/Coding Visit Charges Inpatient E&M: 62442 Disch Hosp
--- NOTE | 2021-08-15 16:23 | DCINST_ITS ---
Discharge Instructions Diet Discharge Diet: [place] diet Follow Up Care Test Results: Test results from this visit will be discussed in further detail at your follow-up appointment, if applicable. Discharge Plan Admission Admit Date/Time: 08/14/21 00:15 Primary Reason for Your Visit: Intractable nausea and vomiting secondary to COVID-19 Attending Provider: Maria L Murrieta Primary Care Provider: Antonio Lucas Consulting Providers: So Lopez NP Instructions Additional Instructions / Restrictions: 1. Referral was made for monoclonal antibody infusion-please follow-up 2. We will need to quarantine and until 08/23/2021 which is 10 days Discharge Orders/Prescriptions Prescriptions: New ondansetron HCl [Zofran] 4 mg tablet 4 mg PO Q8H PRN (Reason: nausea and vomiting) Qty: 12 RF: 0 Continued diphenhydramine HCl [Banophen] 25 MG capsule 25 mg PO BID PRN PRN (Reason: Allergies) RF: 0 fluticasone propionate 1 SPRAY spray,suspension 2 spray NASAL DAILY RF: 0 Zyrtec 10 MG capsule 10 mg PO DAILY RF: 0 lisinopril 10 mg Tablet 10 mg PO DAILY RF: 0 Other Ambulatory Orders: COVID Outpatient Monoclonal Antibody Referral (Routine) Timeframe: 1 Day Facility: [facility] - Location: [facility] Ordered By: Dr. Maria L Murrieta Referrals / Follow Up: Antonio Lucas MD [Primary Care Provider] - In 1 Week Disposition Disposition (needs filled in before D/C Order can be placed): Home, Self Care
--- NOTE | 2021-08-16 16:04 | CASEMGMT ---
Addendum entered by Fariba Jameson 08/16/21 16:12: This HYUN POP also left a message for the monoclonal antibody clinic to call pt's father back. Titus PURVIS CM Original Note: HYUN POP COVID Discharge F/U Phone Call LACE: 4 Strata: 1 Discharge date: 08/15/21 Call date: 08/16/21 Call time: [id number] Admission dx: Suspected COVID, lactic acidosis Pt's father answered the phone and answered questions for pt at this time(pt is non-verbal normally). Per father, pt is 'doing really good' since discharge. Pt has been eating well and his oxygen level has been good. Father states no questions regarding discharge instructions/medications. Father states that he missed call from monoclonal antibx clinic this am as he was here getting them as well. He states he called them back and left a message for them to call him. Father states no further questions/concerns/needs. Titus PURVIS CM
== END 2021-08-15 17:27 | disposition home or self-care (01) | DRG 178 ==
LOC: ED 21:41 → PCU 08-14 00:29
PROVIDERS: Admitting Provider Family Medicine; Emergency Provider Student in an Organized Health Care Education/Training Program; PCP Family Medicine; Visit Provider Internal Medicine
DX: U07.1 COVID-19 (principal); Q91.7 Trisomy 13, unspecified; E87.2 Acidosis; R74.01 Elevation of levels of liver transaminase levels; M41.9 Scoliosis, unspecified; J45.909 Unspecified asthma, uncomplicated; I10 Essential (primary) hypertension; E66.9 Obesity, unspecified; E86.0 Dehydration; R73.9 Hyperglycemia, unspecified; Z68.32 Body mass index [BMI] 32.0-32.9, adult
CPT/HCPCS: 36415; 71045; 71275; 80048; 80053; 81001; 82728; 83605; 83615; 83880; 84145; 84484; 85025; 85379; 85610; 85730; 86140; 87040; 87086; 87426; 87449; 87633; 87635; 93005; 97802; 99284; J7030; J7040; J7050; Q9967; U0005; A4216; J2405; U0003

== ENCOUNTER 2021-08-17 15:43 | Outpatient (CLI) | payer OTHER, MEDICAID, SELFPAY ==
[2021-08-17] MEDS: 0.9% Saline Lock 10 ML Syringe IV (16:11)
[2021-08-17 16:14] VITALS: BP 123/90; PULSE 115; RESP 18; TEMP 36.6; O2SAT 97; BMI 34.7
[2021-08-17 17:10] VITALS: BP 128/87; PULSE 111; RESP 16; TEMP 37.7; O2SAT 98
[2021-08-17 18:55] VITALS: BP 123/88; PULSE 113; RESP 16; TEMP 36.8; O2SAT 98
== END 2021-08-17 17:50 | disposition home or self-care (01) ==
LOC: MS3OUT 15:43 → MS3 15:44
PROVIDERS: PCP Family Medicine; Referring Provider Nurse Practitioner Adult Health; Visit Provider Nurse Practitioner Adult Health
DX: Z23 Encounter for immunization (principal); U07.1 COVID-19
CPT/HCPCS: J7050; M0243; A4216; Q0244

== ENCOUNTER → 2022-01-27 10:19 | Outpatient (CLI) | payer OTHER, MEDICAID, SELFPAY ==
[2022-01-27 10:26] LABS: Bacteria 0 SEEN /hpf (None Seen); Mucous, Urine 0 SEEN /hpf (<or=2+); Red Blood Cells-Urine 0 SEEN /hpf (0-5); Squamous Epithelial Cells - UA 0 SEEN /hpf (0-5); White Blood Cells 0 SEEN /hpf (0-5)
[2022-01-27 10:39] LABS: Color, Urine Yellow (Yellow); Glucose, Dipstick Normal (Normal); Ketone-Dipstick Negative (Negative); Leukocyte Esterase-Dipstick Negative /ul (Negative); Nitrite-Dipstick Negative (Negative); Occult Blood-Urine 25 /ul (Negative); Protein-Dipstick 30 mg/dl (Negative); Urine Bilirubin Dipstick Negative (Negative); Urine Clarity Clear (Clear); Urine Urobilinogen Normal (Normal)
[2022-01-27 10:59] LABS: Albumin, Serum 3.9 g/dL (3.2-5.0); BUN 14 mg/dL (7-18); BUN/Creat Ratio 13.3 RATIO (10-20); Calcium,Total 9.9 mg/dL (8.5-10.1); Chloride 104 mmol/L (98-107); Creatinine, Serum 1.05 mg/dL (0.70-1.30); EST Glomerular Filtration Rate 85 mL/min (>60); Est Glom Filt Rate - Afr Amer 103 mL/min (>60); Glucose 99 mg/dL (74-106); Phosphorus 2.4 mg/dL (2.5-4.9); Potassium 4.3 mmol/L (3.5-5.1); Sodium Level 138 mmol/L (136-145)
[2022-01-27 11:09] LABS: Microalbumin:Creatinine Ratio 130.6 mg/g CRE (<30 mg/g CRE); Protein, Urine (Random) 37.8 mg/dL (<11.9)
== END ==
PROVIDERS: PCP Family Medicine
DX: R80.9 Proteinuria, unspecified (principal); I10 Essential (primary) hypertension
CPT/HCPCS: 36415; 80069; 81001; 82043; 82570; 84156

== ENCOUNTER → 2023-01-16 | Outpatient (CLI) | payer OTHER, MEDICAID, SELFPAY ==
[2023-01-16 16:42] LABS: Bacteria 0 SEEN /hpf (None Seen); Mucous, Urine 0 SEEN /hpf (<or=2+); Red Blood Cells-Urine 0 SEEN /hpf (0-5); Squamous Epithelial Cells - UA 0 SEEN /hpf (0-5); White Blood Cells 0 SEEN /hpf (0-5)
[2023-01-16 16:58] LABS: Color, Urine Yellow (Yellow); Glucose, Dipstick Normal (Normal); Ketone-Dipstick Negative (Negative); Leukocyte Esterase-Dipstick Negative /ul (Negative); Nitrite-Dipstick Negative (Negative); Occult Blood-Urine Negative /ul (Negative); Protein-Dipstick 30 mg/dl (Negative); Specific Gravity, Urine 1.015 (1.002-1.030); Urine Bilirubin Dipstick Negative (Negative); Urine Clarity Clear (Clear); Urine Urobilinogen Normal (Normal)
[2023-01-16 17:16] LABS: Amorphous Sediment 1+
[2023-01-16 17:24] LABS: Microalbumin:Creatinine Ratio 234.4 mg/g CRE (<30 mg/g CRE); Protein:Creat Ratio 475 mg/g CRE (0-200)
[2023-01-16 17:40] LABS: BUN 17 mg/dL (7-18); BUN/Creat Ratio 17.3 RATIO (10-20); Calcium,Total 9.9 mg/dL (8.5-10.1); Chloride 105 mmol/L (98-107); Creatinine, Serum 0.98 mg/dL (0.70-1.30); EST Glomerular Filtration Rate 92 mL/min (>60); Est Glom Filt Rate - Afr Amer 111 mL/min (>60); Glucose 92 mg/dL (74-106); Potassium 4.4 mmol/L (3.5-5.1); Sodium Level 141 mmol/L (136-145)
== END | disposition home or self-care (01) ==
PROVIDERS: PCP Family Medicine
DX: I10 Essential (primary) hypertension (principal); R80.9 Proteinuria, unspecified
CPT/HCPCS: 36415; 80069; 81001; 82043; 82570; 84156

== ENCOUNTER → 2024-01-23 | Outpatient (CLI) | payer OTHER, MEDICAID, SELFPAY ==
[2024-01-23 16:47] LABS: Bacteria 0 SEEN /hpf (None Seen); Mucous, Urine 0 SEEN /hpf (<or=2+); Squamous Epithelial Cells - UA 0 SEEN /hpf (0-5); White Blood Cells 0 SEEN /hpf (0-5)
[2024-01-23 17:12] LABS: Color, Urine Yellow (Yellow); Glucose, Dipstick Normal (Normal); Ketone-Dipstick Negative (Negative); Leukocyte Esterase-Dipstick Negative /ul (Negative); Nitrite-Dipstick Negative (Negative); Occult Blood-Urine 25 /ul (Negative); Protein-Dipstick 100 mg/dl (Negative); Urine Bilirubin Dipstick Negative (Negative); Urine Clarity Clear (Clear); Urine Urobilinogen Normal (Normal)
[2024-01-23 17:22] LABS: Red Blood Cells-Urine 0-5 SEEN /hpf (0-5)
[2024-01-23 17:46] LABS: BUN 17 mg/dL (7-18); BUN/Creat Ratio 17.3 RATIO (10-20); Calcium,Total 9.9 mg/dL (8.5-10.1); Chloride 103 mmol/L (98-107); Creatinine, Serum 0.98 mg/dL (0.70-1.30); EST Glomerular Filtration Rate 91 mL/min (>60); Est Glom Filt Rate - Afr Amer 110 mL/min (>60); Glucose 84 mg/dL (74-106); Phosphorus 3.6 mg/dL (2.5-4.9); Sodium Level 138 mmol/L (136-145)
[2024-01-23 18:22] LABS: Protein, Urine (Random) 84.1 mg/dL (<11.9); Protein:Creat Ratio 657 mg/g CRE (0-200)
--- OUTSIDE RECORDS SUMMARY | 2024-01-23 20:40 | XMS RPT_ITS | CCD ---
Author Name Unknown Address [address] [place] [address] Organization [facility] Care Team Providers Care Business Reporter Name Role Phone Ita Hogan Unavailable Unavailable Ita Hogan Unavailable Unavailable Domitila Trevino Unavailable Unavailable Ita Hogan Unavailable Unavailable Ita Hogan MD Primary Care Provider [phone] Ita Hogan MD Unavailable BERENICE TEAGUE Attending Unavailable ITA HOGAN Primary Care Unavailable CAMRYN ADAM Attending Unavailable ITA HOGAN Primary Care Unavailable SO GONSALES Attending Unavailable CAMRYN ADAM Referring Unavailable ITA HOGAN Primary Care Unavailable SO GONSALES Attending Unavailable ITA HOGAN Primary Care Unavailable SO GONSALES Referring Unavailable ITA HOGAN Primary Care Unavailable Medications Current Medications Medication Drug Class(es) Dates Sig (Normalized) Sig (Original) amoxicillin 875 mg / clavulanate 125 mg oral tablet (2 sources) Penicillin-class Antibacterial Start: 10-23-2023 amoxicillin-pot clavulanate (Augmentin) 875-125 mg tablet Indications: Pain of finger, unspecified laterality , Paronychia of finger, right Tale one tablet twice a day for 10 days 20 tablet 0 10/23/2023 Active ciclopirox 80 mg/ml topical solution (6 sources) Start: 12-20-2023 ciclopirox (Penlac) 8 % solution Indications: Nail dystrophy , 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 , Ingrown nail of right middle finger Apply topically once daily at bedtime. 6.6 mL 1 12/20/2023 Active diphenhydrAMINE hydrochloride 25 mg oral tablet (14 sources) Histamine-1 Receptor Antagonist diphenhydrAMINE (Benadryl Allergy) 25 mg tablet Take by mouth. 0 Active loratadine 10 mg disintegrating oral tablet (8 sources) take 1 tablet by mouth once daily loratadine (Claritin Reditabs) 10 mg disintegrating tablet Take 1 tablet (10 mg) by mouth once daily. 0 Active Completed/Discontinued Medications Medication Drug Class(es) Dates Sig (Normalized) Sig (Original) amoxicillin 875 mg oral tablet (1 source) Penicillin-class Antibacterial Start: 05-19-2020 take 1 tablet by mouth twice daily Amoxicillin 875 MG Oral Tablet TAKE 1 TABLET TWICE DAILY FOR TOE INFECTION Quantity: 14 Refills: 0 Ita Hogan MD Start : 19-May-2020 Active cephalexin 500 mg oral capsule (1 source) Cephalosporin Antibacterial Start: 08-22-2020 take 1 capsule by mouth three times daily Cephalexin 500 MG Oral Capsule TAKE 1 CAPSULE 3 TIMES DAILY UNTIL GONE. Quantity: 21 Refills: 0 Domitila Trevino MD Start : 22-Aug-2020 Active ZyrTEC Allergy TABS (1 source) Histamine-1 Receptor Antagonist ZyrTEC Allergy TABS Refills: 0 Active fluticasone propionate 0.05 mg/actuat metered dose nasal spray (6 sources) Corticosteroid take 2 spray(s) nasal route once daily Fluticasone Propionate 50 MCG/ACT Nasal Suspension USE 2 SPRAYS IN EACH NOSTRIL ONCE DAILY Quantity: 1 Refills: 0 Active 16 GM Bottle furosemide 20 mg oral tablet (2 sources) Loop Diuretic Start: 02-19-2020 take 1 tablet by mouth once daily Furosemide 20 MG Oral Tablet TAKE 1 TABLET DAILY FOR SWELLING AND PROTEIN IN URINE Quantity: 30 Refills: 0 Ita Hogan MD Start : 19-Feb-2020 Active lisinopril 2.5 mg oral tablet (11 sources) Angiotensin Converting Enzyme Inhibitor Start: 02-19-2020 take 1 tablet by mouth once daily Lisinopril 2.5 MG Oral Tablet Take 1 tablet daily Quantity: 30 Refills: 0 tIa Hogan MD Start : 19-Feb-2020 Active Problems Active Problems Problem Classification Problem Date Documented Date Episodic/Chronic Aspiration pneumonitis; food/vomitus (1 source) Aspiration pneumonia; Translations: [Aspiration pneumonia] Episodic Genitourinary symptoms and ill-defined conditions (10 sources) Microscopic hematuria; Translations: [Proteinuria] Episodic Immunizations and screening for infectious disease (3 sources) Raised antinuclear antibody; Translations: [Abnormal antinuclear antibody titer] Episodic Inflammation; infection of eye (except that caused by tuberculosis or sexually transmitteddisease) (1 source) Orbital cellulitis; Translations: [Cellulitis of left orbital region] Episodic Other connective tissue disease (1 source) Pain in finger; Translations: [Pain in unspecified finger(s)] 10-23-2023 Episodic Other connective tissue disease (2 sources) Pain in unspecified finger(s); Translations: [Pain in unspecified finger(s)] Onset: 10-23-2023 Episodic Other ear and sense organ disorders (6 sources) Blood in ear canal; Translations: [History of Blood in right ear canal] Episodic Other infections; including parasitic (6 sources) H/O: infectious disease; Translations: [History of dermatophytosis] Episodic Other injuries and conditions due to external causes (6 sources) Insect bite - wound; Translations: [History of Bug bite] Episodic Other lower respiratory disease (12 sources) H/O: respiratory disease; Translations: [History of pharyngitis] Episodic Other lower respiratory disease (5 sources) Personal history of pneumonia (recurrent); Translations: [History of aspiration pneumonia] Episodic Other nervous system disorders (6 sources) H/O: ear disorder; Translations: [History of impacted cerumen] Episodic Other nutritional; endocrine; and metabolic disorders (6 sources) Developmental delay; Translations: [Severe developmental delay] Chronic Other skin disorders (6 sources) Personal history of diseases of the skin and subcutaneous tissue; Translations: [History of eczema] Episodic Other skin disorders (6 sources) Ingrowing toenail; Translations: [History of Ingrown toenail] Episodic Other skin disorders (6 sources) Eruption; Translations: [History of Rash] Episodic Other skin disorders (1 source) Disorder of nail; Translations: [Nail disorder, unspecified] 10-31-2023 Episodic Other skin disorders (2 sources) Dystrophia unguium; 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] 12-20-2023 Episodic Other skin disorders (2 sources) Ingrowing nail; Translations: [Ingrowing nail] 12-20-2023 Episodic Other skin disorders (2 sources) Nail disorder, unspecified; Translations: [Nail disorder, unspecified] Onset: 10-31-2023 Episodic Other upper respiratory disease (6 sources) Allergic rhinitis; Translations: [Allergic rhinitis] Chronic Other upper respiratory infections (1 source) Viral upper respiratory tract infection; Translations: [Viral URI with cough] Episodic Otitis media and related conditions (6 sources) Otitis media; Translations: [History of Left otitis media] Episodic Residual codes; unclassified (5 sources) Edema of extremity; Translations: [Edema of extremities] Episodic Skin and subcutaneous tissue infections (12 sources) Paronychia of finger of right hand; Translations: [Cellulitis of right finger] Onset: 10-23-2023 10-23-2023 Episodic Unclassified (2 sources) Consult; Translations: [Consult] Onset: 12-20-2023 Past or Other Problems Problem Classification Problem Date Documented Da te Episodic/Chronic Skin and subcutaneous tissue infections (2 sources) Paronychia of toe of left foot; Translations: [Paronychia of toe of left foot] Unclassified (6 sources) Patient encounter status; Translations: [Vision exam with abnormal findings] NEGATED: Highlighted row has not occurred!Residual codes; unclassified (13 sources) Disease Episodic Results Test Name Value Interpretation Reference Range Facil ity Vital Signs Date Time Vital Sign Value Performing Clinician Facility 10-23-2023 13:36-0500 Body mass index (BMI) [Ratio] 30.71 kg/m2 Berenice Teague MD Work Phone: [facility] 10-23-2023 13:36-0500 Body temperature 99.61 [degF] Berenice Teague MD Work Phone: [facility] 10-23-2023 13:36-0500 Body weight 76.16 kg Berenice Teague MD Work Phone: [facility] 10-23-2023 13:36-0500 Diastolic blood pressure 83 mm[Hg] Berenice Teague MD Work Phone: [facility] 10-23-2023 13:36-0500 Heart rate 56 /min Berenice Teague MD Work Phone: [facility] 10-23-2023 13:36-0500 SaO2% (BldA) [Mass fraction] 98 % Berenice Teague MD Work Phone: [facility] 10-23-2023 13:36-0500 Systolic blood pressure 136 mm[Hg] Berenice Teague MD Work Phone: [facility] 05-19-2020 18:30-0400 BMI (Body Mass Index) 31.18 kg/m2 Ita Hogan [facility] Work Phone: 05-19-2020 18:30-0400 Body Temperature 97.7 [degF] [facility] Work Phone: Encounters Encounter Date Encounter Type Care Provider Facility Start: 01-17-2024 End: 01-17-2024 Office outpatient visit 10 minutes So Gonsales MD Work Phone: [facility] Procedures Date Procedure Procedure Detail Performing Clinician Start: 01-10-2024 SKIN / NAIL BIOPSY Telly Gonsales MD Work Phone: Start: 01-10-2024 SKIN EXCISION So Gonsales MD Work Phone: Start: 01-03-2024 XR FINGERS RIGHT 2+ VIEWS SO GONSALES Start: 01-03-2024 Radex fingr minimum 2 views So Gonsales MD Work Phone: Start: 12-20-2023 SKIN / NAIL BIOPSY Telly Gonsales MD Work Phone: Start: 12-20-2023 SKIN EXCISION So Gonsales MD Work Phone: Start: 08-22-2020 Coronavirus 2019 RNA by PCR, Symptomatic Ita Hogan Start: 05-19-2020 Coronavirus(COVID-19 )SARS-C oV-2 IGG Ita Hogan Start: 05-19-2020 Urnls dip stick/tabl et rgnt auto w/o microscopy Ita Hogan Start: 05-19-2020 Lipid 1996 panel - S angela or Plasma Berenice Teague MD Work Phone: Start: 02-11-2020 Protein electrop fxj &eliot oth flus concentrati Ita Hogan Start: 01-31-2020 C/C Ratio, Urine 24 hr Ita Hogan Start: 01-31-2020 Creatinine measureme nt, 24 hour urine Ita Hogan Start: 01-31-2020 Protein electrop fxj &eliot oth flus concentrati Ita Hogan Start: 01-31-2020 Total Protein, Urine 24Hr Ita Hogan Start: 01-29-2020 Assay of blood/uric acid Ita Hogan Start: 01-29-2020 Assay of thyroid stimulating hormone tsh Ita Hogan Start: 01-29-2020 CBC W Auto Different ial panel - Blood Ita Hogan Start: 01-29-2020 Comprehensive metabo lic 2000 panel Ita Hogan Start: 01-29-2020 Lipid panel Ita Patrick e Start: 01-29-2020 Urnls dip stick/tabl et rgnt auto w/o microscopy Ita Hogan History of Back Surgery Florentin Mylesangel History of Eye Surgery Ita Hogan Plan of Treatment Date Care Activity Detail Author Start: 2037 Zoster Vaccines (1 o f 2) Zoster Vaccines (1 of 2) [facility] Start: 05-19-2025 Lipid panel Lipid Panel [facility] Start: 01-17-2024 End: 01-17-2024 Patient encounter procedure 01/17/2024 3:00 PM EST Office Visit [facility] [address] [address] So Gonsales MD [address], [facility] [address] [place] [address] [facility] Start: 01-03-2024 End: 01-03-2025 XR Finger - right 2 Views [facility] Service Area Work Phone: Payers Date Payer Category Payer Private Health Insurance [employer] [id number] 2022-Present [address] [place] [address] [id number] 2022 Private Health Insurance [id number] 2022 Unknown [employer] [facility] [id number] 2022-Present [address] [place] [address] [id number] 2022 Unknown [id number] 1987 Unknown [id number] 1987 Unknown [id number] 1987 Unknown [id number] 1987 Unknown [id number] 1987 Unknown [id number] Social History Date Type Detail Facility Start: 10-23-2023 Tobacco smoking status NHIS Never smoked tobacco [facility] Work Phone: Start: 10-23-2023 Tobacco use and exposure Smokeless tobacco non-user [facility] Work Phone: Start: 10-23-2023 End: 11-04-2023 Alcohol intake Lifetime non-drinker (finding) [facility] Work Phone: Start: 1985 Sex Assigned At Not on file [facility] Work Phone: Start: 10-31-2023 End: 11-04-2023 Gender identity Not on file [facility] Work Phone: Start: 10-13-2023 End: 01-17-2024 Exposure to SARS-CoV-2 (event) Not sure [facility] Start: 10-31-2023 End: 11-04-2023 History of Social function [facility] Work Phone: NEGATED: Highlighted row - - CHARLEE-Anabel [facility] Work Phone: Functional Status Date Assessment Result Facility NEGATED: Highlighted row Functional performance Functional status health issues are not documented Disease [facility] Work Phone: Mental Status Date Assessment Result Facility NEGATED: Highlighted row Cognitive function [Interpretation] Cognitive status health issues are not documented Disease [facility] Work Phone: Clinical Notes 10-23-2023 to 01-17-2024 So Gonsales MD - 01/17/2024 3:00 PM Nabila Gonsales MD - 01/10/2024 2:00 PM Jonathan Dudley RN - 01/03/2024 1:15 PM Nabila Gonsales MD - 12/20/2023 11:00 AM EST Note Date & Type Note Facility 01-17-2024 History of Present illness Narrative Office Follow Up Note Visit Summary Chief Complaint 1. Complaint Wound check. Jc Berg is a 39 y.o. male who presents for 1 week follow up after surgery for a nail avulsion. Dad states that they continue to use antibiotic ointment and epsom salt baths. Dad notices Jc seems to be in less discomfort from the nail since the avulsion. Location Operation site location: Right Third Finger Proximal Nail Fold On exam, Mr. Berg is well-appearing and in no apparent distress. The surgical site appears clean with minimal to no erythema. Slight tenderness. No granulation tissue appreciable. Assessment and Plan: 1 week s/p nail avulsion of an ingrown nail complicated by granulation tissue treated with AgNO3. No granulation tissue remains. Tenderness has decreased. Continue cleansing the area. Follow-up in 5 - 6 weeks. So Gonsales MD documented in this encounter [facility] Work Phone: 01-10-2024 History of Present illness Narrative Excision Operative Note Date of Surgery: 01/10/2024 Surgeon: So Gonsales MD Office Location: [address] [place] [id number] Dept: [phone] Dept Referring Provider: Camryn Adam Jc Berg is a 38 y.o. male who presents today with dad for the following: Nail avulsion According to the patient, the lesion has been present for approximately 4 months at the time of diagnosis. The lesion is painful. The lesion has not been treated previously. The patient does not have a pacemaker / defibrillator. The patient does not have a heart valve / joint replacement. The patient is not on blood thinners. The patient does not have a history of hepatitis B or C. The patient does not have a history of HIV. The patient does not have a history of immunosuppression (e.g. organ transplantation, malignancy, medications) Review of Systems: No other skin or systemic complaints other than what is documented elsewhere in the note. MEDICAL HISTORY: clinically relevant history including significant past medical history, medications and allergies was reviewed and documented in Epic. The following portions of the chart were reviewed this encounter and updated as appropriate: Assessment/Plan Pre-procedure: Obtained informed consent: written from patient The surgical site was identified and confirmed with the patient. Intra-operative: Audible time out called at : 1:55 PM 01/10/24 by: Betsey Stein MA Verified patient name, birthdate, site, specimen bottle label & requisition. The planned procedure(s) was again reviewed with the patient. The risks of bleeding, infection, nerve damage and scarring were reviewed. The patient identity, surgical site, and planned procedure(s) were verified. Site: Right third digit- nail avulsion. The patient was supinated and the surgical area was prepped with alcohol then chlorhexidine in a standard fashion. Patient was evaluated and monitored. Anesthesia: 1% plain lidocaine was used as a distal wing block, total injected: 3.0 ml. A sterile glove finger was placed over the 3rd digit and a finger tip slit was rolled back to the base of the digit. Procedure: Using a 15-bladed, the hypergranulation tissue on the lateral nail fold was incised to visualize the lateral nail, and incisions were made laterally along the proximal nail fold. A nail avulsion was performed. The matrix and bed were cleansed with normal saline. 5-0 fast surgical gut was used to close the epidermal layer. The tourniquet was removed and prompt reperfusion appreciated to the distal digit. Silver nitrate was applied to the granulation tissue on the lateral nail fold. Wound care: A dressing of vaseline, telfa, gauze, and tape was applied and wound care reviewed. The patient was observed for 10 minutes. There were no complications. The procedure was tolerated well. The patient was dischaged home with dad in good condition and detailed wound care instructions reviewed. Wound care was discussed, and the patient was given written post-operative wound care instructions. The patient will follow up in 1 week with So Gonsales MD as needed for any post operative problems or concerns, and will follow up with their primary sparker and patcher as scheduled. documented in this encounter [facility] Work Phone: 01-03-2024 History of Present illness Narrative Office Follow Up Note Visit Summary Chief Complaint 1. Complaint Wound check. Jc Berg is a 38 y.o. male who presents for 2 week follow up after surgery for a neoplasm of uncertain behavior of skin. The patient has no concerns today. Location Operation site location: Right 3rd digit On exam, Mr. Berg is well-appearing and in no apparent distress. The surgical site appears clean with minimal to no erythema. No tenderness and good wound edge apposition. Assessment and Plan: History of skin cancer requiring ongoing monitoring for recurrence and additional lesion development. The patient was reassured that the wound is healing appropriately. Sutures were removed without complication today. The dressing was removed, the wound cleaned a a new dressing reapplied. The patient was advised on the importance of sun protection and routine skin monitoring and instructed to call with any further concerns. The patient will return as needed documented in this encounter [facility] Work Phone: 12-20-2023 History of Present illness Narrative Office Visit Note Date: 12/20/2023 Surgeon: So Gonsales MD Office Location: [address] [address] Dept: [phone] Dept Referring Provider: Camryn Adam, DUMP OPERATOR-MEAT DEPARTMENT MANAGER [address] [address] Subjective Jc Berg is a 38 y.o. male who presents today with dad for the following: Consult nail According to the patient, the lesion has been present for approximately 4 months at the time of diagnosis. The lesion is painful. The lesion has not been treated previously. The patient does not have a pacemaker / defibrillator. The patient does not have a heart valve / joint replacement. The patient is not on blood thinners. The patient does not have a history of hepatitis B or C. The patient does not have a history of HIV. The patient does not have a history of immunosuppression (e.g. organ transplantation, malignancy, medications) Review of Systems: No other skin or systemic complaints other than what is documented elsewhere in the note. MEDICAL HISTORY: clinically relevant history including significant past medical history, medications and allergies was reviewed and documented in Epic. Objective Well appearing patient in no apparent distress; mood and affect are within normal limits. Vital signs: See record. Noted on the right third digit, along the ulnar aspect is a bent nail with overlying soft friable skin. The distal and ulnar finger pulp is indurated. The patient confirmed the identified site. Discussion: Chronic Paronychia, Nail Dystrophy, Ingrown nail of right third digit Discussed the likely etiology of the nail dystrophy with Jc and his dad. Per dad, an ingrown nail had started about 4 months prior. Lamonte has had a history of these on his toe nails but not his finger nails. He has tried oral augmentin with minimal relief. He has also tried topical mupirocin ointment, as well as soaks with bay dish soap. I discussed how a full nail avulsion was unlikely necessary today, since the ingrown nail is more distal. Discussed trimming the nail back, along with vinegar soaks, and topical ciclopirox to start. If the induration along the distal finger continues, may need to consider imaging and referral for a possible felon versus other. Procedure details: Site: Right third digit. The patient was supinated and the surgical area was prepped with alcohol then chlorhexidine in a standard fashion. Patient was evaluated and monitored. Anesthesia: 2% lidocaine with epinephrine was used, total injected: 1.5ml. Incision: Using a 15-bladed, the hypergranulation tissue on the lateral nail fold was incised to visualize the lateral nail. The lateral nail plate and distal nail plate were trimmed using an salvadorean anvi nail splitter. No sutures placed. Hemostasis was obtained with cautery and pressure. Wound care: The site was cleaned with alcohol and a sterile pressure dressing applied with gauze and tape, taping [id number] and [id number]. There were no complications. The procedure was well tolerated. Patient discharged in good condition with dad. A handout on wound care was given to the patient. documented in this encounter [facility] Work Phone: 10-31-2023 History of Present illness Narrative Images from the original note were not included. Subjective Jc Berg is a 38 y.o. male who presents for the following: Nail Problem (Presents for nail issue to right hand third digit. Onset awhile ago . Amox-Clav x1 week with minimal effect. Using antiseptic cleanser to area. ). Review of Systems: No other skin or systemic complaints other than what is documented elsewhere in the note. The following portions of the chart were reviewed this encounter and updated as appropriate: Tobacco Allergies Meds Problems Med Hx Surg Hx Fam Hx Skin Cancer History No skin cancer on file. Specialty Problems None Objective Well appearing patient in no apparent distress; mood and affect are within normal limits. Examined for injury due to fall while rooming, no injuries noted, no loss of consciousness, no dizziness, no chest pain or shortness of breath. No objects, liquids, or any other environmental factors that may have attributed to Jc's fall. Patient and father declined further evaluation including an ER visit. Assessment/Plan 1. Nail disorder Related Procedures Follow Up In Dermatology - Established Patient 2. Paronychia of finger of right hand Right 3rd Finger Medial Paronychium Examined for injury due to fall while rooming, no injuries noted, no loss of consciousness, no dizziness, no chest pain or shortness of breath. No objects, liquids, or any other environmental factors that may have attributed to Jc's fall. Patient and father declined further evaluation including an ER visit. Localized to lateral aspect of right hand, 3th digit is erythema, swelling, and tenderness. Improved since starting Augmentin. - Start mupirocin ointment (has current prescription at home), apply to affected area 3 times daily for 10 days. - Continue Augmentin and soaks. - Will discuss long-term solution, including nail excision/destruction with derm surgeon. - Please send a photo of Jc's finger in 1 week and call if the condition fails to improve. documented in this encounter [facility] Work Phone: 10-23-2023 History of Present illness Narrative Subjective Jc Berg is a 38 y.o. male who presents for HPI: Dr Hogan pt Chief Complaint Patient presents with Hand Pain 3rd finger R hand What concern/ problem/pain/symptom brings you here today? Third finger, R hand how long has pt had sxs? 1-2 months describe symptoms- pus drainage No fever at home has pt tried anything for current symptoms, including medications (OTC or prescription) ? Epsom salts soaks, MORTEZA what makes symptoms worse? Pressure Social History Tobacco Use Smoking Status Never Smokeless Tobacco Never Review of Systems: Objective Vitals: 10/23/23 1336 BP: 136/83 BP Location: Left arm Patient Position: Sitting BP Cuff Size: Adult Pulse: 56 Temp: 37.6 C (99.6 F) TempSrc: Temporal SpO2: 98% Weight: 76.2 kg (167 lb 14.4 oz) Patient is alert and oriented x 3 , NAD EXT- right middle finger - BP Readings from Last 3 Encounters: 10/23/23 136/83 08/29/21 111/79 05/19/20 132/88 Wt Readings from Last 3 Encounters: 10/23/23 76.2 kg (167 lb 14.4 oz) 08/29/21 72.1 kg (159 lb) 05/19/20 74.8 kg (165 lb) BMI Readings from Last 3 Encounters: 10/23/23 30.71 kg/m 08/29/21 29.08 kg/m 05/19/20 31.18 kg/m Assessment/Plan 1. Pain of finger, unspecified laterality 2. 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 Nail dystrophy Other specified disease of nail Ingrown nail of right middle finger documented in this encounter [facility] Work Phone: Evaluation note* Diagnosis 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 documented in this encounter [facility] Work Phone: Evaluation note* Diagnosis 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 documented in this encounter [facility] Work Phone: Evaluation note* Diagnosis 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 documented in this encounter [facility] Work Phone: Evaluation note* Diagnosis 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 documented in this encounter [facility] Work Phone: Reason for referral (narrative)* Consultation (Routine) - Authorized Specialty Diagnoses / Procedures Referred By Rosita t Referred To Contact Orthopaedic Surgery / Orthopedic Surgery Diagnoses Pain of finger, unspecified laterality Paronychia of finger, right Berenice Teague MD [address] [facility], [address] [address] Referral ID Status Reason Start Date Expiration Date Visits Requested Visits Authorized [id number] Authorized Consult and Treat 10/23/2023 10/22/2024 1 1 [facility] Work Phone: Reason for referral (narrative)* Consultation (Routine) - Authorized Specialty Diagnoses / Procedures Referred By Rosita costa Referred To Contact Dermatology Diagnoses Nail disorder Procedures Follow Up In Dermatology - Established Patient Camryn Adam APRN-CNP [address] [address] Referral ID Status Reason Start Date Expiration Date V isits Requested Visits Authorized [id number] Authorized 10/31/2023 10/30/2024 1 1 [facility] Work Phone: Family History Mother Name Dates Details No pertinent family history( V49.89, Z78.9) Status:Active Father Name Dates Details No pertinent family history( V49.89, Z78.9) Status:Active Mother Name Dates Details No pertinent family history( V49.89, Z78.9) Status:Active Father Name Dates Details No pertinent family history( V49.89, Z78.9) Status:Active Mother Name Dates Details No pertinent family history( V49.89, Z78.9) Status:Active Father Name Dates Details No pertinent family history( V49.89, Z78.9) Status:Active Mother Name Dates Details No pertinent family history( V49.89, Z78.9) Status:Active Father Name Dates Details No pertinent family history( V49.89, Z78.9) Status:Active Mother Name Dates Details No pertinent family history( V49.89, Z78.9) Status:Active Father Name Dates Details No pertinent family history( V49.89, Z78.9) Status:Active Mother Name Dates Details No pertinent family history( V49.89, Z78.9) Status:Active Father Name Dates Details No pertinent family history( V49.89, Z78.9) Status:Active Summary Purpose Advance Directives No Advanced Directives Records FoundNo Advanced Directives Records FoundNo Advanced Directives Records FoundNo Advanced Directives Records Found Reason for Referral Specialty Diagnoses / Procedures Referred By Rosita costa Referred To Contact Radiology Diagnoses 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 Procedures XR fingers right 2+ views So Gonsales MD [address] [address] Referral ID Status Reason Start Date Expiration Date Visits Requested Visits Authorized [id number] Authorized Perform Procedure 01/03/2024 01/02/2025 1 1 Additional Source Comments (unrecognized sect ion and content) No Status Records FoundNo Status Records FoundNo Status Records FoundNo Status Records Found INFORMATION SOURCE (unrecogn ized section and content) DATE CREATED AUTHOR AUTHOR'S ORGANIZ ATION 08/30/2021 [employer] DATE CREATED AUTHOR AUTHOR'S ORGANIZ ATION 01/05/2024 [facility] DATE CREATED AUTHOR AUTHOR'S ORGANIZ ATION 01/15/2024 [facility] Reason for Visit (unrecogniz ed section and content) Reason Comments Nail Problem Presents for nail is roni to right hand third digit. Onset awhile ago . Amox-Clav x1 week with minimal effect. Using antiseptic cleanser to area. 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 Procedures XR fingers right 2+ views So Gonsales MD [address] [place] [address] Referral ID Status Reason Start Date Expiration Date Visits Requested Visits Authorized [id number] Authorized Perform Procedure 01/03/2024 01/02/2025 1 1 Reason Comments Excision Reason Comments Wound Check Care Teams (unrecognized sec tion and content) Business Reporter Relationship Specialty Start Date End Date Ita Hogan MD [address] [facility], [address] [place], [place] [address] PCP - General 01/29/20 Business Reporter Relationship Specialty Start Date End Date Ita Hogan MD [address] [facility], [address] [place], [place] [address] PCP - General 01/29/20 Business Reporter Relationship Specialty Start Date End Date Ita Hogan MD [address] [facility], [address] [place] [address] PCP - General 01/29/20 Business Reporter Relationship Specialty Start Date End Date Ita Hogan MD [address] [facility], [facility] [address] [place], [place] [address] PCP - General 01/29/20 Business Reporter Relationship Specialty Start Date End Date Ita Hogan MD [address] [facility], [facility] [address] [place], [place] [id number] PCP - General 01/29/20 FOR RECORDS PERTAINING TO PATIENTS WHO ARE OR HAVE BEEN ENROLLED IN A CHEMICAL DEPENDENCY/SUBSTANCEABUSE PROGRAM, SOME INFORMATION MAY BE OMITTED. This clinical summary was aggregated from multiple sources. Caution should be exercised in using it in the provision of clinical care. This summary normalizes information from multiple sources, and as a consequence, information in this document may materially change the coding, format and clinical context of patient data. In addition, data may be omitted in some cases. CLINICAL DECISIONS SHOULD BE BASED ON THE PRIMARY CLINICAL RECORDS. [facility] [id number] [facility]. provides no warranty or guarantee of the accuracy or completeness of information in this document.
== END | disposition home or self-care (01) ==
LOC: LAB 16:43
PROVIDERS: PCP Family Medicine
DX: I10 Essential (primary) hypertension (principal); R80.9 Proteinuria, unspecified
CPT/HCPCS: 80069; 81001; 82043; 82570; 84156

== ENCOUNTER → 2024-04-17 | Outpatient (CLI) | payer OTHER, MEDICAID, SELFPAY ==
[2024-04-17 15:14] LABS: Albumin, Serum 3.8 g/dL (3.2-5.0); BUN 17 mg/dL (7-18); BUN/Creat Ratio 18.6 RATIO (10-20); Calcium,Total 9.6 mg/dL (8.5-10.1); Chloride 104 mmol/L (98-107); Creatinine, Serum 0.91 mg/dL (0.70-1.30); EST Glomerular Filtration Rate 99 mL/min (>60); Est Glom Filt Rate - Afr Amer 120 mL/min (>60); Glucose 93 mg/dL (74-106); Potassium 4.3 mmol/L (3.5-5.1); Sodium Level 136 mmol/L (136-145)
== END | disposition home or self-care (01) ==
LOC: LAB 13:25
PROVIDERS: PCP Family Medicine
DX: R80.9 Proteinuria, unspecified (principal)
CPT/HCPCS: 36415; 80069

== ENCOUNTER → 2025-01-30 | Outpatient (CLI) | payer OTHER, MEDICAID, SELFPAY ==
[2025-01-30 09:57] LABS: Bacteria 0 SEEN /hpf (None Seen)
[2025-01-30 10:11] LABS: Color, Urine Yellow (Yellow); Glucose, Dipstick 1000 mg/dl (Normal); Ketone-Dipstick Negative (Negative); Leukocyte Esterase-Dipstick 25 /ul (Negative); Nitrite-Dipstick Negative (Negative); Occult Blood-Urine 50 /ul (Negative); Protein-Dipstick 100 mg/dl (Negative); Specific Gravity, Urine 1.015 (1.002-1.030); Urine Bilirubin Dipstick Negative (Negative); Urine Clarity Clear (Clear); Urine Urobilinogen Normal (Normal)
[2025-01-30 10:53] LABS: Mucous, Urine 1+ /hpf (<or=2+); Red Blood Cells-Urine 0-5 SEEN /hpf (0-5); Squamous Epithelial Cells - UA 0-5 SEEN /hpf (0-5); White Blood Cells 0-5 SEEN /hpf (0-5)
[2025-01-30 10:54] LABS: Fine Granular Cast- Urine 0-5 SEEN /lpf (0-5)
[2025-01-30 10:55] LABS: Coarse Granular Cast 0-5 SEEN /lpf (0-5 /lpf); Yeast-Urine 1+ /hpf (None Seen)
[2025-01-30 10:57] LABS: Albumin, Serum 4.4 g/dL (3.5-5.0); Anion Gap 15 (5-15); BUN 14 mg/dL (4-19); BUN/Creat Ratio 15.9 RATIO (10-20); Calcium,Total 9.8 mg/dL (7.6-11.0); Carbon Dioxide 20.1 mmol/L (21.0-32.0); Chloride 102 mmol/L (98-108); Creatinine, Serum 0.91 mg/dL (0.70-1.20); EST Glomerular Filtration Rate 111 (>60); Glucose 114 mg/dL (70-99); Potassium 4.5 mmol/L (3.3-5.1); Sodium Level 137 mmol/L (133-145)
[2025-01-30 11:20] LABS: Microalbumin:Creatinine Ratio 3740.7 mg/g CRE; Protein:Creat Ratio 593 mg/g CRE (0-200)
== END | disposition home or self-care (01) ==
LOC: LAB 09:45
PROVIDERS: PCP Family Medicine
DX: R80.9 Proteinuria, unspecified (principal)
CPT/HCPCS: 36415; 80069; 81001; 82043; 82570; 84156